=== PATIENT | female | born 1960 | race African-American/Black ===

== ENCOUNTER 2023-04-27 12:59 | Outpatient (AMB) | payer MEDICARE, SELFPAY ==
--- NOTE | 2023-04-27 13:05 | A.OFFVIS_ITS ---
Intake Vital Signs 04/27/23 13:07 Height 5 ft Weight 177 lb 4 oz BMI 34.6 BP 128/72 Blood Pressure Location Lt brachial Position Sitting Pulse 68 Pulse Source Pulse Oximeter Pulse Oximetry (%) 99 Oxygen Delivery Method Room Air Intake Visit Reasons: Chronic headaches Allergies codeine Allergy (Intermediate, Verified 04/27/23 13:11) Unknown duloxetine [From Cymbalta] Allergy (Mild, Verified 04/27/23 13:12) Unknown iodine Allergy (Mild, Verified 04/27/23 13:11) Unknown Penicillins Allergy (Mild, Verified 04/27/23 13:11) Rash pregabalin [From Lyrica] Allergy (Mild, Verified 04/27/23 13:12) Itching Medication List - Last Reconciled 04/27/23 by Mel Doll MD aripiprazole 2 mg PO DAILY esomeprazole magnesium 40 mg PO DAILY ibuprofen 800 mg PO Q6H irbesartan 150 mg PO DAILY levothyroxine 150 mcg PO DAILY metoprolol tartrate 25 mg PO DAILY nifedipine ER 30 mg PO DAILY ropinirole 0.25 mg PO DAILY topiramate 25 mg PO DAILY trazodone 100 mg PO DAILY HPI HPI Comments History of Present Illness Details 62y/o right handed female comes for neur ological evaluation she was seeing Dr. Urbano and Joanne YUEN for many years. [facility] - by Dr. Zeb Wren and Joanne . she did not fulfill the [employer] criteria for multiple sclerosis and it was ruled out. MRi findings were more diffuse than normally seen in MS patients, CSF was negative for oligoclonal bands .she also has h/o positive SSA antibody cervical spondylosis . she mentioned meningioma but according to Joanne s note there was no meningioma. She reports migraines since her teenage years and has increased in frequency and intensity. The pain is usually in right frontal temporal orbital region radiating to occip ital region, throbbing pain with nausea , light sensitivty , blurry vision. It is intense for 10-15 minutes and then has cephalgia - can last for 1 hr. she uses ibuprofen . she has about 3 -4 episodes a week. she has chronic neck and back pain and affects her sleep. [facility] Medical History Sjogren's disease IBS (irritable bowel syndrome) Hypothyroidism Fibromyalgia HTN (hypertension) Carpal tunnel syndrome on both sides Depression Anxiety Neuralgic migraines Back pain Cervical spondylosis Hernia, abdominal delivery delivered Surgical History H/O exploratory laparotomy H/O laparoscopy H/O: hysterectomy Family History Mother Heart abnormality Brother Heart abnormality Social History Alcohol intake: current Patient Tobacco Use Status: Never used Tobacco Substance Use Type: Marijuana Physical Exam Vital Signs: Last Vital Signs Pulse 68 04/27/23 13:07 BP 128/72 04/27/23 13:07 Pulse Ox 99 04/27/23 13:07 Oxygen Delivery Method Room Air 04/27/23 13:07 BMI result Body Mass Index 34.6 Const General: cooperative, healthy appearing, comfortable and no acute distress Nutritional Appearance: overweight Orientation/consciousness: patient oriented x3 Eyes Pupils: Equal, round and reactive pupils present Neuro Other: tightness in neck muscles No dystonia General: patient oriented x3, gait normal, tone normal and moves all extremities Cranial nerves: Yes Facial sensation intact/muscles of mastication intact, Yes Equal, round and reactive pupils present, Yes Bilaterally intact EOM present, Yes Nystagmus not present, Yes Normal facial strength present, Yes Midline tongue present and Yes Symmetric palate elevation present Cognition (Neuro): normal cognition Gait exam (Neuro): Normal gait present Motor exam (neuro): 5/5 motor strength present throughout and Normal motor muscle tone present throughout Deep tendon reflexes (DTR's): Right triceps reflex intensity grade: 1+, Left triceps reflex intensity grade: 1+, Rt Biceps (C5, C6): 1+, Left biceps reflex intensity grade: 1+, Right brachioradialis reflex intensity grade: 1+, Left brachioradialis reflex intensity grade: 1+, Right patellar reflex intensity grade: 1+ and Left patellar reflex intensity grade: 1+ Coordination: [id number] test normal Assessment & Plan Assessment & Plan (1) Chronic headache disorder: Code(s): R51.9 - Headache, unspecified; G89.29 - Other chronic pain (2) Neuralgic migraines: Code(s): G44.009 - Cluster headache syndrome, unspecified, not intractable (3) Cervical spondylosis: Code(s): M47.812 - Spondylosis without myelopathy or radiculopathy, cervical region Plan I will evaluate her with MRI brain - she id concerned about white matter changes that was seen few years ago I will trial her on topiramate 25mg bid Magnesium 400mg qhs Riboflavin 400mg qam flexeril 5mg qhs Orders: Orders MR head/brain wo con Today G44.009 - Cluster headache syndrome, unspecified, not intractable Medications: New cyclobenzaprine 5 mg PO BEDTIME 30 tabs 0RF topiramate 25 mg PO BID 60 tabs 6RF magnesium oxide 400 mg PO DAILY 30 tabs 6RF riboflavin (vitamin B2) 400 mg PO QAM 30 tabs 6RF Coding Level of Care Code New Pt Level 4 (70297) Diagnoses Chronic headache disorder R51.9; G89.29 Neuralgic migraines G44.009 Cervical spondylosis M47.812
[2023-04-27 13:07] VITALS: BP 128/72; PULSE 68; O2SAT 99; BMI 34.6
== END 2023-04-27 13:49 | disposition home or self-care (01) ==
PROVIDERS: Visit Provider Psychiatry & Neurology Neurology
DX: G89.29 Other chronic pain (principal); G44.009 Cluster headache syndrome, unspecified, not intractable; M47.812 Spondylosis without myelopathy or radiculopathy, cervical region
CPT/HCPCS: 99204

== ENCOUNTER → 2023-04-27 12:59 | Outpatient (BNVA) | payer MEDICARE, SELFPAY | PROVIDERS: Visit Provider Psychiatry & Neurology Neurology | DX: G44.009 Cluster headache syndrome, unspecified, not intractable (principal); R51.9 Headache, unspecified; M47.812 Spondylosis without myelopathy or radiculopathy, cervical region; G89.29 Other chronic pain | CPT/HCPCS: 99202 ==

== ENCOUNTER 2023-06-07 10:15 | Outpatient (REF) | payer MEDICARE, OTHER, SELFPAY ==
--- NOTE | ~2023-06-07 | MR_ITS ---
EXAMINATION: MR BRAIN WITHOUT CONTRAST CLINICAL INFORMATION: Migraines, blurry vision, dizzy, right facial pain COMPARISON: None. TECHNIQUE: MRI of the brain was obtained using routine sequences without contrast. FINDINGS: There is no reduced diffusion to suggest acute infarct. Susceptibility weighted sequence is within normal limits. No mass effect, extra-axial collection, midline shift, or other herniation. The ventricles and sulci are normal in size and configuration. Periventricular and subcortical T2/FLAIR hyperintense foci are nonspecific but likely represent moderate to advanced chronic microvascular ischemic change. Intracranial flow voids are preserved. Scattered paranasal sinus mucosal thickening. The mastoid air cells have trace opacification. No focal expansile/destructive osseous lesion. MR/MR head/brain wo con IMPRESSION: No acute infarction or mass effect. Moderate to advanced chronic microvascular ischemic change.
== END 2023-06-07 10:16 | disposition home or self-care (01) ==
LOC: HO.MRI 10:15
PROVIDERS: Visit Provider Psychiatry & Neurology Neurology
DX: G44.009 Cluster headache syndrome, unspecified, not intractable (principal)
CPT/HCPCS: 70551

== ENCOUNTER 2023-07-25 14:36 | Outpatient (AMB) | payer MEDICARE, SELFPAY ==
--- NOTE | 2023-07-25 15:05 | MHC.OFFVIS ---
Vital Signs 07/25/23 15:14 Height 5 ft Weight 170 lb 2 oz BMI 33.2 BP 140/70 H Blood Pressure Location Rt brachial Position Sitting Pulse 78 Pulse Source Pulse Oximeter Pulse Oximetry (%) 98 Oxygen Delivery Method Room Air Intake Visit Reasons: 3 mo f/u Intake Note: Patient presents for 3 months F/U. Allergies codeine Allergy (Intermediate, Verified 07/25/23 15:10) Unknown duloxetine [From Cymbalta] Allergy (Mild, Verified 07/25/23 15:10) Unknown iodine Allergy (Mild, Verified 07/25/23 15:10) Unknown Penicillins Allergy (Mild, Verified 07/25/23 15:10) Rash pregabalin [From Lyrica] Allergy (Mild, Verified 07/25/23 15:10) Itching HPI Comments Details: 62 y/o female patient presents for follow up of chronic headache. Pt reports her headache frequency has decreased with topiramate 25 mg BID. However, topiramate changed her taste, and her primary care recommend to stop it. Topiramate discontinued about 10 days ago. Pt tried flexeril for neck pain and headache prevention, pt tried one month, but not sure it helped to reduce the neck pain. She was seeing Dr. Urbano and Karen YUEN for many years. She was evaluated [facility] - by Dr. Zeb Wren and Karen. She did not fulfill the [employer] criteria for multiple sclerosis and it was ruled out. MRI findings were more diffuse than normally seen in MS patients, CSF was negative for oligoclonal bands. She also has h/o positive SSA antibody cervical spondylosis. She mentioned meningioma but according to Karen's note there was no meningioma. She reports migraines since her teenage years and has increased in frequency and intensity. The pain is usually in right frontal temporal orbital region radiating to occipital region, throbbing pain with nausea, light sensitivity, blurry vision. Pt reports disrupted sleep. She snores, and having non refreshing sleep with daytime sleepiness. She feels tired all the time. [facility] Medical History Sjogren's disease IBS (irritable bowel syndrome) Hypothyroidism Fibromyalgia HTN (hypertension) Carpal tunnel syndrome on both sides Depression Anxiety Neuralgic migraines Back pain Cervical spondylosis Hernia, abdominal delivery delivered Surgical History H/O exploratory laparotomy H/O laparoscopy H/O: hysterectomy Family History Mother Heart abnormality Brother Heart abnormality Social History Alcohol intake: current Patient Tobacco Use Status: Never used Tobacco Substance Use Type: Marijuana Review of Systems Const All systems reviewed & are unremarkable except as noted in HPI and below Physical Exam Vital Signs: Last Vital Signs Pulse 78 07/25/23 15:14 BP 140/70 H 07/25/23 15:14 Pulse Ox 98 07/25/23 15:14 Oxygen Delivery Method Room Air 07/25/23 15:14 BMI result Body Mass Index 33.2 Const General: cooperative, healthy appearing, comfortable and no acute distress Nutritional Appearance: overweight Orientation/consciousness: patient oriented x3 Eyes Pupils: Equal, round and reactive pupils present Neuro Other: tightness in neck muscles No dystonia General: patient oriented x3, gait normal, tone normal and moves all extremities Cranial nerves: Yes Facial sensation intact/muscles of mastication intact, Yes Equal, round and reactive pupils present, Yes Bilaterally intact EOM present, Yes Nystagmus not present, Yes Normal facial strength present, Yes Midline tongue present and Yes Symmetric palate elevation present Cognition (Neuro): normal cognition Gait exam (Neuro): Normal gait present Motor exam (neuro): 5/5 motor strength present throughout and Normal motor muscle tone present throughout Deep tendon reflexes (DTR's): Right triceps reflex intensity grade: 1+, Left triceps reflex intensity grade: 1+, Rt Biceps (C5, C6): 1+, Left biceps reflex intensity grade: 1+, Right brachioradialis reflex intensity grade: 1+, Left brachioradialis reflex intensity grade: 1+, Right patellar reflex intensity grade: 1+ and Left patellar reflex intensity grade: 1+ Coordination: [id number] test normal Assessment & Plan Assessment & Plan (1) Chronic headache disorder: Code(s): R51.9 - Headache, unspecified; G89.29 - Other chronic pain (2) Neuralgic migraines: Code(s): G44.009 - Cluster headache syndrome, unspecified, not intractable Category: Medical (3) Cervical spondylosis: Code(s): M47.812 - Spondylosis without myelopathy or radiculopathy, cervical region Category: Medical (4) Snoring: Code(s): R06.83 - Snoring Category: Medical (5) Daytime sleepiness: Code(s): R40.0 - Somnolence Category: Medical Plan D/C topiramate. Advised patient to continue to take Magnesium 400mg qhs and Riboflavin 400mg qam. Flexeril 5mg qHS. Advised patient to undergo home sleep study to r/o sleep apnea. Will follow up of sleep study result for appropriate treatment options. Orders: Orders RT home sleep study 07/25/23 Medications: Changed From cyclobenzaprine 5 mg PO BEDTIME 30 tabs 0RF To cyclobenzaprine 5 mg PO BEDTIME 30 tabs 0RF 30 days Discontinued topiramate Discontinued Reason: Doctor's Order 25 mg PO BID 60 tabs 6RF Coding Level of Care Code Est Pt Level 4 (64697) Diagnoses Chronic headache disorder R51.9; G89.29 Neuralgic migraines G44.009 Cervical spondylosis M47.812 Snoring R06.83 Daytime sleepiness R40.0
[2023-07-25 15:14] VITALS: BP 140/70; PULSE 78; O2SAT 98; BMI 33.2
== END 2023-07-25 15:51 | disposition home or self-care (01) ==
PROVIDERS: Visit Provider Nurse Practitioner Family
DX: G44.009 Cluster headache syndrome, unspecified, not intractable (principal); G89.29 Other chronic pain; M47.812 Spondylosis without myelopathy or radiculopathy, cervical region; R06.83 Snoring; R40.0 Somnolence
CPT/HCPCS: 99214

== ENCOUNTER → 2023-07-25 14:36 | Outpatient (BNVA) | payer MEDICARE, SELFPAY | PROVIDERS: Visit Provider Nurse Practitioner Family | DX: G44.009 Cluster headache syndrome, unspecified, not intractable (principal); R51.9 Headache, unspecified; M47.812 Spondylosis without myelopathy or radiculopathy, cervical region; R06.83 Snoring; R40.0 Somnolence; G89.29 Other chronic pain | CPT/HCPCS: 99212 ==

== ENCOUNTER → 2023-09-20 11:11 | Outpatient (REF) | payer MEDICARE, SELFPAY | LOC: HO.SL 11:11 | PROVIDERS: PCP Internal Medicine; Visit Provider Nurse Practitioner Family | DX: G47.33 Obstructive sleep apnea (adult) (pediatric) (principal); R40.0 Somnolence; R06.83 Snoring | CPT/HCPCS: 95806 ==

== ENCOUNTER → 2023-09-20 11:18 | Outpatient (BNV) | payer MEDICARE, SELFPAY | PROVIDERS: PCP Internal Medicine; Visit Provider Psychiatry & Neurology Neurology | DX: G47.33 Obstructive sleep apnea (adult) (pediatric) (principal) | CPT/HCPCS: 95806 ==

== ENCOUNTER 2024-01-25 15:16 | Outpatient (AMB) | payer MEDICARE, SELFPAY ==
--- NOTE | 2024-01-25 15:16 | A.OFFVIS_ITS ---
Vital Signs 01/25/24 15:17 Height 5 ft Weight 170 lb BMI 33.2 Intake Visit Reasons: Follow up Intake Note: Patient presents for follow up Allergies codeine Allergy (Intermediate, Verified 01/25/24 15:20) Unknown duloxetine [From Cymbalta] Allergy (Mild, Verified 01/25/24 15:20) Unknown iodine Allergy (Mild, Verified 01/25/24 15:20) Unknown Penicillins Allergy (Mild, Verified 01/25/24 15:20) Rash pregabalin [From Lyrica] Allergy (Mild, Verified 01/25/24 15:20) Itching Medication List - Last Reconciled 01/25/24 by Mel Doll MD aripiprazole 2 mg PO DAILY esomeprazole magnesium 40 mg PO DAILY ibuprofen 800 mg PO Q6H levothyroxine 150 mcg PO DAILY magnesium oxide 400 mg PO DAILY meloxicam 15 mg PO DAILY nifedipine ER 30 mg PO DAILY phentermine 15 mg PO DAILY riboflavin (vitamin B2) 400 mg PO QAM ropinirole 0.5 mg PO DAILY trazodone 100 mg PO DAILY HPI Comments Details: 63 y/o female patient presents for follow up of chronic headache. she was doing well but 3 weeks ago she started having more frequent headaches 3-4 /week.she also has increased neck pain. when she has the headaches she has lightheadedness and dizzy and usually in her right Temperoparietal region.she takes ibuprofen 800mg as needed Her metoprolol was stopped 3 months ago due to dizziness. she also had passed out in July of 2023. she also stopped magnesium, flexeril and riboflavin few months ago. she also was diagnosed with sleep apnea but could not use CPAP AHI 18 O2 dawood 83 % History form last visit-Pt reports her headache frequency has decreased with topiramate 25 mg BID. However, topiramate changed her taste, and her primary care recommend to stop it. Topiramate discontinued about 10 days ago. Pt tried flexeril for neck pain and headache prevention, pt tried one month, but not sure it helped to reduce the neck pain. She was seeing Dr. Urbano and Karen YUEN for many years. She was evaluated at [facility] - by Dr. Zeb Byrd. She did not fulfill the [employer] criteria for multiple sclerosis and it was ruled out. MRI findings were more diffuse than normally seen in MS patients, CSF was negative for oligoclonal bands. She also has h/o positive SSA antibody cervical spondylosis. She mentioned meningioma but according to Karen's note there was no meningioma. She reports migraines since her teenage years and has increased in frequency and intensity. The pain is usually in right frontal temporal orbital region radiating to occipital region, throbbing pain with nausea, light sensitivity, blurry vision. Pt reports disrupted sleep. She snores, and having non refreshing sleep with daytime sleepiness. She feels tired all the time. [facility] Medical History (Updated 01/25/24 @ 15:57 by Mel Doll MD) Obstructive sleep apnea hypopnea, moderate Migraine Cervicogenic headache Sarcoidosis Sjogren's disease IBS (irritable bowel syndrome) Hypothyroidism Fibromyalgia HTN (hypertension) Carpal tunnel syndrome on both sides Depression Anxiety Neuralgic migraines Back pain Cervical spondylosis Hernia, abdominal delivery delivered Surgical History H/O exploratory laparotomy H/O laparoscopy H/O: hysterectomy Family History Mother Heart abnormality Brother Heart abnormality Social History Alcohol intake: current Patient Tobacco Use Status: Never used Tobacco Substance Use Type: Marijuana Physical Exam Vital Signs: BMI result Body Mass Index 33.2 Const General: cooperative, healthy appearing, comfortable and no acute distress Nutritional Appearance: overweight Orientation/consciousness: patient oriented x3 Eyes Pupils: Equal, round and reactive pupils present Neuro Other: tenderness tightness in neck muscles No dystonia General: patient oriented x3, gait normal, tone normal and moves all extremities Cranial nerves: Yes Facial sensation intact/muscles of mastication intact, Yes Equal, round and reactive pupils present, Yes Bilaterally intact EOM present, Yes Nystagmus not present, Yes Normal facial strength present, Yes Midline tongue present and Yes Symmetric palate elevation present Cognition (Neuro): normal cognition Gait exam (Neuro): Normal gait present Motor exam (neuro): 5/5 motor strength present throughout and Normal motor muscle tone present throughout Coordination: [id number] test normal Assessment & Plan Assessment & Plan (1) Cervicogenic headache: Code(s): G44.86 - Cervicogenic headache Category: Medical (2) Migraine: Code(s): G43.909 - Migraine, unspecified, not intractable, without status migrainosus Category: Medical Qualifiers: Migraine type: unspecified Status migrainosus presence: without status migrainosus Intractability: not intractable Qualified Code(s): G43.909 - Migraine, unspecified, not intractable, without status migrainosus (3) Obstructive sleep apnea hypopnea, moderate: Code(s): G47.33 - Obstructive sleep apnea (adult) (pediatric) Category: Medical Plan Restart Magnesium 400mg qhs Restart Vit B 2 400mg qam Restart Cyclobenzaprine 5-10 mg qhs PRN will refer for oral mandibular device Orders: Referrals Dentistry Referral G47.33 - Obstructive sleep apnea (adult) (pediatric) Medications: Refilled magnesium oxide 400 mg PO DAILY 30 tabs 6RF riboflavin (vitamin B2) 400 mg PO QAM 30 tabs 6RF Discontinued cyclobenzaprine Discontinued Reason: Patient no longer taking 5 mg PO BEDTIME 30 days 30 tabs 0RF Coding Level of Care Code Est Pt Level 4 (38283) Complex EM visit Add On G2211 Diagnoses Cervicogenic headache G44.86 Migraine without status migrainosus, not intractable, unspecified migraine type G43.909 Migraine type: unspecified Status migrainosus presence: without status migrainosus Intractability: not intractable Obstructive sleep apnea hypopnea, moderate G47.33
[2024-01-25 15:17] VITALS: BMI 33.2
== END 2024-01-25 15:54 | disposition home or self-care (01) ==
PROVIDERS: Visit Provider Psychiatry & Neurology Neurology
DX: G44.86 Cervicogenic headache (principal); G43.909 Migraine, unspecified, not intractable, without status migrainosus; G47.33 Obstructive sleep apnea (adult) (pediatric)
CPT/HCPCS: 99214; G2211

== ENCOUNTER → 2024-01-25 15:16 | Outpatient (BNVA) | payer MEDICARE, SELFPAY | PROVIDERS: Visit Provider Psychiatry & Neurology Neurology | DX: G44.86 Cervicogenic headache (principal); G43.909 Migraine, unspecified, not intractable, without status migrainosus; G47.33 Obstructive sleep apnea (adult) (pediatric) | CPT/HCPCS: 99212 ==

== ENCOUNTER 2024-09-04 13:45 | Outpatient (AMB) | payer MEDICARE, BC, MEDICAID, SELFPAY ==
--- NOTE | 2024-09-04 14:02 | MHC.OFFVIS ---
Vital Signs 09/04/24 14:07 Height 5 ft Weight 178 lb 2 oz BMI 34.8 BP 118/78 Blood Pressure Location Lt brachial Position Sitting Pulse 74 Pulse Source Pulse Oximeter Pulse Oximetry (%) 98 Oxygen Delivery Method Room Air Intake Visit Reasons: Follow up Intake Note: Patient presents follow up Migraine. Allergies codeine Allergy (Intermediate, Verified 09/04/24 14:10) Unknown duloxetine [From Cymbalta] Allergy (Mild, Verified 09/04/24 14:10) Unknown iodine Allergy (Mild, Verified 09/04/24 14:10) Unknown Penicillins Allergy (Mild, Verified 09/04/24 14:10) Rash pregabalin [From Lyrica] Allergy (Mild, Verified 09/04/24 14:10) Itching HPI Comments Details: 63 y/o female patient presents for follow up of chronic headaches. HST c/w moderate JIM AHI 18 O2 dawood 83%. She continues to snore and has fragmented sleep patterns with daily fatigue and non refreshing sleep. Today with discussed the significance of using cpap and being compliant for her heart and brain health. Today she reports her migraines are much improved now 2-3x per month in the mornings usually, they begin in the r. temporal parietal region, migrates down the right side of the head to the occipital region, with a stabbing sensation, causes her to squint with right side of face then closes her r. eye. The intensity of pain is 6-7 lasting for 1/2 hour to one hour and goes away with Ibuprofen 800mg PO. She has no triggers, sometimes just a prodrome signals starting in the back of the head, with blurry vision and black dots with light sensivitivity.She recently had cataract surgery L. Apr and R. Jun with [facility] Dr. Patino, so seeing black dots is her baseline visual distortion. SHe is taking flexiril, magnesium, riboflavin. She is taking HCTZ for HTN. She passed out due to syncope in Apr 2023, and hit her head due to hypotension on metoprolol. She discontinue Topiramate 25mg PO BID, due to metallic taste, per her pcp. RLS: She has a history of RLS with numbness, tingling, throbbing pain like electrical currrents runniing down the back of her L. buttocks and down to the legs into the calves. MS history: She was seeing Dr. Urbano and Karen YUEN for many years. She was evaluated at [facility] - by Dr. Zeb Wren and Karen. She did not fulfill the [employer] criteria for multiple sclerosis and it was ruled out. MRI findings were more diffuse than normally seen in MS patients, CSF was negative for oligoclonal bands. She also has h/o positive SSA antibody cervical spondylosis. She mentioned meningioma but according to Karen's note there was no meningioma. [facility] Medical History Obstructive sleep apnea hypopnea, moderate Migraine Cervicogenic headache Sarcoidosis Sjogren's disease IBS (irritable bowel syndrome) Hypothyroidism Fibromyalgia HTN (hypertension) Carpal tunnel syndrome on both sides Depression Anxiety Neuralgic migraines Back pain Cervical spondylosis Hernia, abdominal delivery delivered Surgical History History of cataract surgery H/O exploratory laparotomy H/O laparoscopy H/O: hysterectomy Family History Mother Heart abnormality Brother Heart abnormality Social History Alcohol intake: current Patient Tobacco Use Status: Never used Tobacco Substance Use Type: Marijuana Physical Exam Vital Signs: Last Vital Signs Pulse 74 09/04/24 14:07 BP 118/78 09/04/24 14:07 Pulse Ox 98 09/04/24 14:07 Oxygen Delivery Method Room Air 09/04/24 14:07 BMI result Body Mass Index 34.8 Const General: cooperative, comfortable and no acute distress Orientation/consciousness: patient oriented x3 HEENT Face and sinus: Yes face symmetric Teeth and gingiva: other ([place]pti score is 3) Eyes Pupils: Equal, round and reactive pupils present Neck Neck: Yes full ROM and Yes other (pain is solicited on extension of the neck.) Resp Effort & Inspection: normal respiratory effort and able to speak in complete sentences Neuro General: patient oriented x3 and moves all extremities Cranial nerves: Yes Facial sensation intact/muscles of mastication intact, Yes Equal, round and reactive pupils present, Yes Normal accommodation reflex present, Yes Normal facial strength present, Yes Midline tongue present, Yes Ability to bilaterally rotate head present, Yes Ability to bilaterally elevate shoulders present and Yes Other cranial nerve findings present (pain on extesion of neck) Gait exam (Neuro): Normal gait present Motor exam (neuro): 5/5 motor strength present throughout and Normal motor muscle tone present throughout Coordination: [id number] test normal Psych Appearance: grossly normal Thought process: Normal thought process present Thought content: Normal thought content present Results Reviewed Results Reviewed: HST c/w moderate jim AHI is 18 and oxygen dawood to 83%. Assessment & Plan Assessment & Plan (1) Obstructive sleep apnea hypopnea, moderate: Comment: she is going to use the cpap machine and try to use it >4 hour each day. Code(s): G47.33 - Obstructive sleep apnea (adult) (pediatric) Category: Medical (2) Fatigue: Code(s): R53.83 - Other fatigue Category: Medical Qualifiers: Fatigue type: chronic, unspecified Qualified Code(s): R53.82 - Chronic fatigue, unspecified (3) RLS (restless legs syndrome): Comment: increased her ropinorole as 0.50 was not effective changed to 0.75mg at bedtime. Code(s): G25.81 - Restless legs syndrome Category: Medical (4) Cervicogenic headache: Comment: may be open to botox in future Code(s): G44.86 - Cervicogenic headache Category: Medical (5) Migraine: Code(s): G43.909 - Migraine, unspecified, not intractable, without status migrainosus Category: Medical Qualifiers: Migraine type: unspecified Status migrainosus presence: without status migrainosus Intractability: not intractable Qualified Code(s): G43.909 - Migraine, unspecified, not intractable, without status migrainosus Plan Migraines Continue Magnesium 400mg qhs, Vit B 2 400mg qam and Cyclobenzaprine 5-10 mg qhs PRN JIM Discussed with patient the importance of using CPAP vs. oral mandibular device, as there is no accountability with oral appliance to objectively measure improvment and given her Hypertension, CPAP will provide better outcomes. RLS increased Ropinorole from 0.50mg po to 0.75mg po at bedtime. Fatigue labs ordered today, she will complete them at [facility]. Will f/u in 3 months for compliance of cpap therapy. Orders: Orders Ferritin Today R40.0 - Somnolence, R53.83 - Other fatigue Methylmalonic Acid Today G47.9 - Sleep disorder, unspecified, R40.0 - Somnolence, R53.83 - Other fatigue Homocysteine Today G47.9 - Sleep disorder, unspecified, R40.0 - Somnolence, R53.83 - Other fatigue Vitamin D 25-OH Total Today R40.0 - Somnolence, R53.83 - Other fatigue Complete Blood Count no Diff Today R40.0 - Somnolence, R53.83 - Other fatigue Comprehensive Met. Panel Today R40.0 - Somnolence, R53.83 - Other fatigue Hemoglobin A1c Today R40.0 - Somnolence, R53.83 - Other fatigue Vitamin B12 and Folate Today R40.0 - Somnolence, R53.83 - Other fatigue Lipid Panel with Reflex Today R40.0 - Somnolence, R53.83 - Other fatigue Medications: Refilled magnesium oxide 400 mg PO DAILY 30 tabs 6RF riboflavin (vitamin B2) 400 mg PO QAM 30 tabs 6RF cyclobenzaprine 1-2 tabs orally bedtime; 60 tabs 0RF M47.812 - Spondylosis without myelopathy or radiculopathy, cervical region Patient Instructions: Sleep Hygiene provided: set a scheduled bedtime and wake time to help regulate the circadian rhythm and balance the release of pituitary hormones. Sleep in a dark room, temperatures below 68 degrees, and no devices n bed. Limit caffeinated products 6 hours prior to bed, and limit fluids 2-4 hours prior to bed. Gentle night yoga, diffusing essential oils, and playing soft music can be relaxing. F/U in 3 months for compliance and call the office if you need supplies do not wait until next appointment. Coding Level of Care Code Est Pt Level 4 (04470) Diagnoses Obstructive sleep apnea hypopnea, moderate G47.33 Chronic fatigue R53.82 Fatigue type: chronic, unspecified RLS (restless legs syndrome) G25.81 Cervicogenic headache G44.86 Migraine without status migrainosus, not intractable, unspecified migraine type G43.909 Migraine type: unspecified Status migrainosus presence: without status migrainosus Intractability: not intractable Time Spent (min) 30
[2024-09-04 14:07] VITALS: BP 118/78; PULSE 74; O2SAT 98; BMI 34.8
--- OUTSIDE RECORDS SUMMARY | 2024-09-04 14:57 | XMS_ITS ---
Author Name [facility] Organization Unknown History of Medication Use Medication Directions Dispensed Refills Start Date End Date Status meloxicam 15 mg tablet Take 1 tablet every day by oral route as needed. 4 active prednisone 10 mg tablet Day 1: 4 tablets in the morning, Day 2: 4 tablets in the morning, Day 3: 3 tablets in the morning, Day 4: 3 tablets in the morning, Day 5: 2 tablets in the morning, Day 6: 2 tablets in the morning, Day 7: 1 tablet in the morning, Day 8: 1 tablet in the morning! 4 active amoxicillin 500 mg capsule TAKE 1 CAPSULE BY MOUTH EVERY 8 HOURS 07/20/19 24 completed irbesartan 150 mg tablet TAKE 1 TABLET B Y MOUTH EVERY DAY FOR 90 DAYS 07/20/19 24 completed prednisone 10 mg tablet PLEASE SEE ATTACHED FOR DETAILED DIRECTIONS 07/20/19 24 completed valacyclovir 1 gram tablet TAKE 1 TABLET BY MOUTH 3 TIMES A DAY FOR 7 DAYS 06/30/19 24 completed valacyclovir 500 mg tablet TAKE 1 TABLET BY MOUTH 2 TIMES A DAY FOR 5 DAYS DRINK PLENTY OF FLUIDS 06/30/19 24 completed valacyclovir 500 mg tablet TAKE 1 TABLET BY MOUTH 2 TIMES A DAY FOR 5 DAYS DRINK PLENTY OF FLUIDS 06/30/19 24 completed dicyclomine 20 mg tablet TAKE 1 TABLET B Y MOUTH THREE TIMES A DAY FOR 30 DAYS 01/28/20 23 completed Linzess 145 mcg capsule PLEASE SEE ATTACHED FOR DETAILED DIRECTIONS 01/28/20 23 completed Linzess 145 mcg capsule PLEASE SEE ATTACHED FOR DETAILED DIRECTIONS 01/28/20 23 completed prednisolone acetate 1 % eye drops,suspension APPLY ONE DROP IN THE RIGHT EYE 4 TIMES A DAY FOR 7 DAYS 01/28/20 23 completed prednisolone acetate 1 % eye drops,suspension APPLY ONE DROP IN THE RIGHT EYE 4 TIMES A DAY FOR 7 DAYS 01/28/20 23 active cyclobenzaprine 5 mg tablet TAKE 1 TABLET BY MOUTH EVERYDAY AT BEDTIME active dicyclomine 10 mg capsule TAKE 1 CAPSULE BY MOUTH THREE TIMES A DAY TAKE BEFORE MEALS active dicyclomine 10 mg capsule TAKE 1 CAPSULE BY MOUTH THREE TIMES A DAY TAKE BEFORE MEALS active hydrochlorothiazide 12.5 mg tablet active hydrocortisone 2.5 % topical cream with perineal applicator APPLY A SMALL AMOUNT TO AFFECTED AREA TWICE A DAY NEEDED FOR HEMORRHOIDS active ibuprofen 800 mg tablet TAKE 1 TABLET BY MOUTH EVERY 6 HOURS NEEDED FOR PAIN active levothyroxine 150 mcg tablet TAKE 1 TABLET BY MOUTH EVERY DAY active magnesium oxide 400 mg (241.3 mg magnesium) tablet TAKE 1 TABLET BY MOUTH EVERY DAY active methylprednisolone 4 mg tablets in a dose pack TAKE 6 TABLETS ON DAY 1 DIRECTED ON PACKAGE AND DECREASE BY 1 TAB EACH DAY FOR A TOTAL OF 6 DAYS active nifedipine ER 30 mg tablet,extended release 24 hr TAKE 1 TABLET BY MOUTH EVERY DAY FOR 90 DAYS active phentermine 15 mg capsule TAKE 1 CAPSULE ORALLY ONCE A DAY FOR 28 DAYS active riboflavin (vitamin B2) 400 mg tablet TAKE 1 TABLET BY MOUTH EVERY DAY IN THE MORNING active sodium fluoride 1.1 % dental paste USE EVERY MORNING AND EVENING FOR 1 MINUTES AND SPIT OUT active sodium fluoride 1.1 % dental paste USE EVERY MORNING AND EVENING FOR 1 MINUTES AND SPIT OUT active topiramate 25 mg tablet TAKE 1 TABLET BY MOUTH TWICE A DAY FOR 30 DAYS active trazodone 100 mg tablet TAKE 1 TABLET BY MOUTH EVERYDAY AT BEDTIME active trazodone 100 mg tablet TAKE 1 TABLET BY MOUTH EVERYDAY AT BEDTIME active Allergies Allergen Reaction Severity Comment Documented Date Source Statu s CYMBALTA [facility] IODINATED CONTRAST MEDIA [facility] ECT LYRICA [facility] OXYCODONE [facility] PENICILLINS [facility] PERCOCET [facility] Problems Problem Status Onset Date Problem Type Date of Resoluti on Source Arthritis of knee active 2023-07-20 ProblemAct [facility] Trochanteric bursitis of left hip active 2023-02-04 ProblemAct [facility] Osteoarthritis of left knee joint active 2023-06-30 ProblemAct [facility] Encounters Encounter Type Encounter Reason Primary Diagnosis Location Date Ambulatory [facility] [place] 08/26/2023 Ambulatory [facility] 08/10/2023 Ambulatory [facility] 08/08/2023 Ambulatory [facility] [place] 08/08/2023 Ambulatory [facility] [place] 08/08/2023 Ambulatory [facility] [place] 08/06/2023 Ambulatory [facility] [place] 08/05/2023 Ambulatory [facility] [place] 07/21/2023 Ambulatory [facility] [place] 07/20/2023 Ambulatory [facility] [place] 07/20/2023 Ambulatory [facility] [place] 06/30/2023 Ambulatory [facility] [place] 06/28/2023 Ambulatory [facility] [place] 06/28/2023 Ambulatory [facility] [place] 06/19/2023 Ambulatory [facility] [place] 04/21/2023 Ambulatory [facility] [place] 03/18/2023 Ambulatory [facility] [place] 02/03/2023 Ambulatory [facility] [place] 02/03/2023 Ambulatory [facility] [place] 01/27/2023 Ambulatory [facility] [place] 01/27/2023 Ambulatory [facility] [place] 01/27/2023 Ambulatory [facility] [place] 01/27/2023 Ambulatory [facility] [place] 01/27/2023 Ambulatory [facility] [place] 01/27/2023
--- OUTSIDE RECORDS SUMMARY | 2024-09-04 14:57 | XMS_ITS | Clinical Summary ---
Author Organization [address] [place] [address] [place] [id number] Phone Care Team Providers Care Calcine Furnace Tender Name Role Phone Emmanuel Rios MD Primary Care Provider [phone] Allergies Active Allergy Reactions Criticality Noted Date Comments Codeine 02/23/2010 Duloxetine 03/22/2024 Dicyclomine Rash 10/28/2023 Iodinated Contrast Media 02/23/2010 Naproxen Rash 10/28/2023 Other reaction(s): Upset stomach Oxycodone-Acetaminophen 01/08/2021 Penicillins 02/23/2010 Pregabalin Nausea And Vomiting,Rash 01/08/2021 Sulfamethoxazole-Trimet hoprim 01/08/2021 Medications ARIPiprazole (ABILIFY) 2 mg tablet Take 1 tablet (2 mg total) by mouth 1 (one) time each day. 4 Active cyclobenzaprine (FLEXERIL) 5 mg tablet TAKE 1 TABLET BY MOUTH AT BEDTIME FOR 30 DAYS Active ibuprofen (ADVIL,MOTRIN) 800 mg tablet TAKE 1 TABLET BY MOUTH EVERY DAY NEEDED FOR MODERATE PAIN WITH FOOD FOR 30 DAYS 4 Active hydroCHLOROthia zide 12.5 mg tablet Take 1 tablet (12.5 mg total) by mouth 1 (one) time each day. 4 Active hydrocortisone 2.5 % cream APPLY A SMALL AMOUNT TO AFFECTED AREA TWICE A DAY NEEDED FOR HEMORRHOIDS Active levothyroxine (SYNTHROID, LEVOTHROID) 150 mcg tablet Take 1 tablet (150 mcg total) by mouth 1 (one) time each day. 4 Active rOPINIRole (REQUIP) 0.25 mg tablet TAKE 2 TABLET BY MOUTH DAILY AT BEDTIME FOR 90 DAYS 4 Active traZODone (DESYREL) 100 mg tablet Take 1 tablet (100 mg total) by mouth at bedtime. 4 Active Active Problems Problem Noted Date Diagnosed Date Palpitations 03/22/2024 Assessment & Plan (03/22/2024 5:51 PM EST): Given that the symptoms are occurring almost every night, have lower suspicion for arrhythmia-arrhythmias are typically not this predictable. However, given that she has recently been diagnosed with sarcoidosis, I would like to proceed with [id number] Holter and echocardiogram as detailed below. Orders: Transthoracic echocardiogram (TTE) complete with PRN contrast, bubble, strain, and 3D order panel; Future Extended cardiac holter monitor (48 hrs - 15 days); Future Pulmonary sarcoidosis ([facility] V24) 03/22/2024 Assessment & Plan (03/22/2024 5:51 PM EST): Thus far, she has not had any heart failure symptoms and no evidence of heart block on ECG. I explained that patients with pulmonary sarcoid often do not have coexisting cardiac sarcoid but it is being diagnosed more more. I would at least like to get a baseline echocardiogram. Her last one was in 2018 so I think it needs updating. There were no pathologic findings on exam today. I will follow-up on this echo and if normal, I do not think we need to do an exhaustive search for cardiac sarcoid unless she manifests symptoms or signs. 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 Venous insufficiency 03/22/2024 Assessment & Plan (03/22/2024 5:51 PM EST): Agree with ongoing use of compression stockings is much as possible. Patient is currently on hydrochlorothiazide which I am cautiously continuing. Please see above. Primary hypertension 03/22/2024 Assessment & Plan (03/22/2024 5:51 PM EST): See plan above under vasovagal syncope but for now I am continuing her current hydrochlorothiazide. It appears to be effective at managing and controlling her blood pressure. Chest pain 03/20/2024 Assessment & Plan (03/22/2024 12:07 PM EST): Orders: ECG 12 lead Transthoracic echocardiogram (TTE) complete with PRN contrast, bubble, strain, and 3D order panel; Future Extended cardiac holter monitor (48 hrs - 15 days); Future Vasovagal syncope 03/19/2024 Assessment & Plan (03/22/2024 5:51 PM EST): 1 episode but also having intermittent episodes of postural lightheadedness it sounds like. My suspicion is that this is related to a combination of factors. She could have been relatively dehydrated at the time of her syncopal episode. She is also on antihypertensives-particularly hydrochlorothiazide which can exacerbate this issue. Furthermore she has venous insufficiency. With use of venous compression stockings and behavioral modifications including adequate oral hydration, slow postural changes, recognition of prodrome, she has been able to manage her symptoms and avoid additional syncopal episodes. I reviewed additional think she could do including isometric manager supply chain planning exercises at the time of symptomatology. If all these behavioral modifications do not work, you could consider going back to dihydropyridine calcium channel blockers and ARB for blood pressure control. Her PCP had her on a regimen of irbesartan and nifedipine in the past but based on her description, it sounds like this was not as effective. So I am cautiously continuing hydrochlorothiazide for the time being. Resolved Problems Problem Noted Date Diagnosed Date Resolved Date Orthostatic hypotension 03/19/20240 08/2023 Dysrhythmia 03/19/2024 03/22/2024 Medical History Medical History Date Comments Fibromyalgia Sjogren's syndrome (CMS/HCC V24) B12 deficiency IBS (irritable bowel syndrome) Asthma Syncopal episodes Family History Medical History Relation Name Comments Heart attack Brother Toño Aortic stenosis Mother Heart attack Sister Lois Relation Name Status Comments Brother Toño Alive Mother Alive Sister Lois Alive Social History Tobacco Use Types Packs/Day Years Used Date Smoking Tobacco: Never Smokeless Tobacco: Never Alcohol Use Standard Drinks/Week Comments Yes 0 (1 standard drink = 0.6 oz pur e alcohol) social Comments Unknown Sex and Gender Information Value Date Recorded Sex Assigned at Female 03/22/2024 11:14 AM EST Legal Sex Female 1:15 AM EST Gender Identity Female 03/22/2024 11:14 AM EST Sexual Orientation Not on file Obstetrics History Last Filed Vital Signs Vital Sign Reading Time Taken Comments Blood Pressure 142/79 04/05/2024 12:27 PM EST Pulse 63 03/22/2024 11:20 AM EST Temperature - - Respiratory Rate - - Oxygen Saturation 98% 03/22/2024 11:20 AM EST Inhaled Oxygen Concentration - - Weight 77.1 kg (170 lb) 04/05/2024 12:27 PM EST Height 152.4 cm (5') 04/05/2024 12:27 PM EST Body Mass Index 33.2 04/05/2024 12:27 PM EST Plan of Treatment Upcoming Encounters Date Type Department Care Team (Late st Contact Info) Description 09/20/2024 2:15 PM EDT Office Visit Pulmonol - [place] [address] [facility] [address] [place] [phone] Kat Thomas MD [address] [place] [address] Health Maintenance Due Date Last Done Comments Breast Cancer Screening 1960 Pneumococcal Vaccine: 50+ Years (1 of 2 - PCV) 12/29/1978 Pneumococcal Vaccine: Pediatrics (0 to 5 Years) and At-Risk Patients (6 to 64 Years) (1 of 2 - PCV) 12/29/1978 Cervical Cancer Screening: Pap Smear 12/29/1980 RSV Immunization Adult Patients (1 - Risk 60-74 years 1-dose series) 2019 Cholesterol Screening (Lipid Panel) 03/21/2022 Colorectal Cancer Screening: Colonoscopy 03/21/2022 Depression Screening 03/21/2022 HIV Screening 03/21/2022 Hepatitis C Screening 03/21/2022 Medicare Annual Wellness Visit 03/21/2022 Social Influencers of Health Screening 03/21/2022 Hypertension/CHF/CAD Annual BMP Blood Test 04/17/2022 COVID-19 Vaccine ( season) 2023 02/23/2022, 07/22/2021, 07/19/2020, Additional history exists Influenza Vaccine (Season Ended) 2024 01/20/2023, 01/20/2023, 02/16/2022, Additional history exists DTaP,Tdap,and Td Vaccines (2 - Td or Tdap) 05/22/2028 05/22/2018 Zoster Vaccines Completed 10/15/2020, 05/09/2020 HIB Vaccines Aged Out No longer eligi ble based on patient's age to complete this topic HPV Vaccines Aged Out No longer eligi ble based on patient's age to complete this topic Hepatitis A Vaccines Aged Out No long er eligible based on patient's age to complete this topic Hepatitis B Vaccines Aged Out No long er eligible based on patient's age to complete this topic IPV Vaccines Aged Out No longer eligi ble based on patient's age to complete this topic MMR Vaccines Aged Out No longer eligi ble based on patient's age to complete this topic Meningococcal ACWY Vaccine Aged Out N o longer eligible based on patient's age to complete this topic Meningococcal B Vaccine Aged Out No l onger eligible based on patient's age to complete this topic RSV Immunization Patients Under 20 months Aged Out No longer eligible based on patient's age to complete this topic Varicella Vaccines Aged Out No longer eligible based on patient's age to complete this topic Insurance [place] - [place] MEDICARE ADVANTAGE Care Teams Calcine Furnace Tender Relationship Specialty Start Date End Date Emmanuel Rios MD [address] [place] [phone] PCP - General 02/23/10
--- OUTSIDE RECORDS SUMMARY | 2024-09-04 14:58 | XMS_ITS | Patient Health Record ---
Author Organization [facility] Address [address] [place] [address] [address] [place] [address] Care Team Providers Care Railroad Repairer Name Role Phone Unknown, Unknown Primary Care Provider Unavailab le Allergies Allergen (clinical drug ingredient) Drug/Non Drug Allergy documented on EMR Reaction Allergy Type Onset Date Status duloxetine Cymbalta hives Drug Allergy Active pregabalin Lyrica hives Drug Allergy Active codeine Codeine breathing issues Drug Allergy Active naproxen Naproxen hives Drug Allergy Active Penicillin hives Drug Allergy Active Reason For Referral No Information Medications Medication SIG (Take, Route, Frequency, Duration) Notes Start Date End Date Status Esomeprazole Magnesium 40 MG 1 capsule Orally Once a day Active B12 400 MG Active Irbesartan 150 MG 1/2 tablet Orally Once a day Active Magnesium 400 MG as directed Orally Active NIFEdipine ER 30 MG 1 tablet on an empty stomach Orally Once a day Active Cyclobenzaprine HCl 5 MG 1 tablet at bed time as needed Orally Once a day Active Levothyroxine Sodium 137 MCG 1 tablet in the morning on an empty stomach Orally Once a day Active Albuterol Sulfate HFA 108 (90 Base) MCG/ACT 1 puff as needed Inhalation every 4 hrs Active Topiramate 25 MG TAKE 1 TABLET BY MOUTH TWICE A DAY FOR 30 DAYS for 90 Active Phentermine HCl 15 MG TAKE 1 CAPSULE ORA LLY ONCE A DAY FOR 28 DAYS for 06/28/2023 Active traZODone HCl 100 MG 1 tablet at bedtime Orally Once a day Active ARIPiprazole 2 MG 1 tablet Orally Once a day Active rOPINIRole HCl 0.25 MG 1 tablet 1 to 3 h ours before bedtime Orally Once a day Active Metoprolol Succinate ER 25 MG 1 tablet Orally Once a day Active Ibuprofen Active Linzess 145 MCG 1 capsule at least 3 0 minutes before the first meal of the day on an empty stomach Orally Once a day for 30 day(s) 08/03/2022 Not-Taking Symbicort 160-4.5 MCG/ACT 2 puffs Inhala tion Twice a day Active Dicyclomine HCl 20 MG 1 tablet Orally Th ree times a day for 30 day(s) 08/03/2022 Not-Taking Immunizations Vaccine Route Administration Date Status Comme nts COVID Moderna Unknown 07/18/2020 Administered COVID Moderna Unknown 07/22/2021 Administered COVID-19 Moderna Unknown 02/23/2022 Administered Flu Shot Unknown 02/16/2022 Administered Shingrix Unknown 05/09/2020 Administered Shingrix Unknown 10/15/2020 Administered Social History Tobacco Use: Social History Observation Description Date Details (start date - stop date) Never Smoker NA - NA Tobacco Use/Smoking Question Answer Notes Are you a nonsmoker Alcohol Screen (Audit-C) Question Answer Notes Did you have a drink contain ing alcohol in the past year? Yes How often did you have a dri nk containing alcohol in the past year? Monthly or less (1 point) How many drinks did you have on a typical day when you were drinking in the past year? 1 or 2 drinks (0 point) Points 1 Interpretation Negative Problems Problem Type SNOMED Code ICD Code Onset Dates Problem Status W/U Status Risk Notes Problem Hypothyroidism (19513648) Hypothyroidism, unspecified (E03.9) Active confirmed Problem Obesity due to excess calories (953517775) Other obesity due to excess calories (E66.09) Active confirmed Problem Mild recurrent major depression (62976094) Major depressive disorder, recurrent, mild (F33.0) Active confirmed Problem Generalized anxiety disorder (97617623) Generalized anxiety disorder (F41.1) Active confirmed Problem Restless legs syndrome (69732671) Restless legs syndrome (G25.81) Active confirmed Problem Insomnia (120496239) Insomnia, unspecified (G47.00) Active confirmed Problem Uncomplicated mild persistent asthma (095348766) Mild persistent asthma, uncomplicated (J45.30) Active confirmed Problem Gastro-esophageal reflux disease without esophagitis (661617224) Gastro-esophagea l reflux disease without esophagitis (K21.9) Active confirmed Problem Constipation (04228006) Constipation, unspecified (K59.00) Active confirmed Problem Essential hypertension (91454867) Essential (primary) hypertension (I10) Active confirmed Problem Irritable bowel syndrome characterized by constipation (785224735) Irritable bowel syndrome with constipation (K58.1) Active confirmed Plan Of Treatment No Information Insurance Providers Payer Name Payer Address Payer Phone Subscriber Number Group Number Insured Name Patient Relationship to Insured Coverage Start Date Coverage End Date [facility] [address] [place] [phone] [id number] Kadie Sharma Self - patient is the insured Medicare [address] [place] [address] [id number] Kadie Sharma Self - patient is the insured Medical (General) History Medical History History ICD Code insomnia RLS anxiety/depression and sees Dr. Teran asthma hypertension GERD IBS Surgical History Surgery Date(Month/Year) x2 partial hysterectomy incisional hernia
--- OUTSIDE RECORDS SUMMARY | 2024-09-04 14:58 | XMS_ITS | Clinical Summary ---
Author Organization [facility] Address [address] [place] [address] Care Team Providers Care Thread Checker Name Role Phone Emmanuel Rios MD Primary Care Provider [phone] Allergies Active Allergy Reactions Criticality Noted Date Comments Sulfamethoxazole-Trimethoprim 2020 Duloxetine Hcl 01/08/2021 Iodinated Contrast Media 01/08/2021 Pregabalin 01/08/2021 Penicillin G 01/08/2021 Oxycodone-Acetaminophen 01/08/2021 Medications Medication Sig Dispensed Refills Start Date End Date Status levothyroxine (SYNTHROID) tablet 175 mcg Take 175 mcg by mouth every morning on an empty stomach. 0 Active rOPINIRole (REQUIP) 0.25 MG tablet Take 0.5 mg by mouth 2 (two) times a day. 0 Active traZODone (DESYREL) 100 MG tablet Take 100 mg by mouth every night at bedtime. 0 Active ibuprofen 800 MG tablet Take 800 mg by mouth every 8 (eight) hours as needed for pain. 0 Active metoprolol tartrate (LOPRESSOR) 50 MG tablet Take 50 mg by mouth daily. 0 Active meclizine (ANTIVERT) 25 MG tablet Take 25 mg by mouth 3 (three) times a day as needed. 0 Active Active Problems Problem Noted Date Diagnosed Date Hypothyroidism 01/09/2021 HTN (hypertension) 01/09/2021 Family History Medical History Relation Name Comments Diabetes Brother Diabetes Maternal Aunt Diabetes Maternal Grandmother Diabetes Maternal Uncle Aortic stenosis Mother Arthritis Mother Osteoporosis Mother Thyroid cancer Mother Thyroid disease Mother Asthma Sister Heart attack Sister Heart disease Sister Multiple sclerosis Neg Hx Relation Name Status Comments Brother Maternal Aunt Maternal Grandmother Maternal Uncle Mother Sister Social History Tobacco Use Types Packs/Day Years Used Date Smoking Tobacco: Never Smokeless Tobacco: Never Sex and Gender Information Value Date Recorded Sex Assigned at Not on file Gender Identity Not on file Sexual Orientation Not on file Job Start Date Occupation Industry Not on file Not on file Not on file Last Filed Vital Signs Vital Sign Reading Time Taken Comments Blood Pressure 138/92 01/08/2021 9:56 AM EDT Pulse 68 01/08/2021 9:56 AM EDT Temperature 36.2 ??C (97.2 ??F) 01/08/2021 9:56 AM ED T Respiratory Rate - - Oxygen Saturation 95% 01/08/2021 9:56 AM EDT Inhaled Oxygen Concentration - - Weight 84.2 kg (185 lb 9.6 oz) 01/08/2021 9:56 A M EDT Height 149.9 cm (4' 11 ) 01/08/2021 9:56 AM EDT Body Mass Index 37.49 01/08/2021 9:56 AM EDT Plan of Treatment Health Maintenance Due Date Last Done Comments Hepatitis C Screening 1960 COVID-19 Vaccine (#1) 06/28/1960 Depression Screening 1971 BMI Counseling 12/29/1977 Preventative Health Evaluation 12/29/1977 DTap / Tdap / Td (1 - Tdap) 12/29/1978 Cervical Cancer Screening (P ap Smear) 12/29/1980 Colon Cancer Screening (Colonoscopy) 12/29/2004 Breast Cancer Screening (Mammogram) 12/29/2009 Shingrix-Zoster Vaccine (1 of 2) 12/29/2009 Influenza Vaccine (#1) 2023 Pneumococcal Vaccine (1 of 1 - PCV) 12/29/2024 RSV Adult > 60+ Yrs or Pregn ant (1 - 1-dose 75+ series) 12/29/2034 Hepatitis B Vaccines Aged Out No long er eligible based on patient's age to complete this topic Pneumococcal Vaccine Aged Out No long er eligible based on patient's age to complete this topic RSV Ped < 20 months Aged Out No longe r eligible based on patient's age to complete this topic Care Teams Thread Checker Relationship Specialty Start Date End Date Emmanuel Rios MD [address] [place] [id number] PCP - General Family Consultant 01/08/21
== END 2024-09-04 14:57 | disposition home or self-care (01) ==
LOC: HO.HSMS 13:45
PROVIDERS: Visit Provider Physician Assistant Medical
DX: G47.33 Obstructive sleep apnea (adult) (pediatric) (principal); R53.82 Chronic fatigue, unspecified; G25.81 Restless legs syndrome; G44.86 Cervicogenic headache; G43.909 Migraine, unspecified, not intractable, without status migrainosus
CPT/HCPCS: 99214

== ENCOUNTER → 2024-09-04 13:45 | Outpatient (BNVA) | payer MEDICARE, OTHER, SELFPAY | PROVIDERS: Visit Provider Physician Assistant Medical | DX: G25.81 Restless legs syndrome (principal); G47.33 Obstructive sleep apnea (adult) (pediatric); R53.82 Chronic fatigue, unspecified; G44.86 Cervicogenic headache; G43.909 Migraine, unspecified, not intractable, without status migrainosus; R40.0 Somnolence; R53.83 Other fatigue; M47.812 Spondylosis without myelopathy or radiculopathy, cervical region | CPT/HCPCS: 99212 ==

== ENCOUNTER 2025-01-21 14:31 | Outpatient (AMB) | payer MEDICARE, MEDICAID, SELFPAY ==
--- NOTE | 2025-01-21 14:57 | A.OFFVIS_ITS ---
Vital Signs 01/21/25 14:59 Height 5 ft Weight 167 lb 6 oz BMI 32.7 BP 128/72 Blood Pressure Location Rt brachial Position Sitting Pulse 88 Pulse Source Pulse Oximeter Pulse Oximetry (%) 97 Oxygen Delivery Method Room Air Intake Visit Reasons: 3m Follow up Intake Note: Patient presents follow up Migraine/JIM. Patient states still getting migraine at times not as much as before(back of head and in shinto). When takes medication helps lower but comes back. 2 migraines in the past month. Patient is not on cpap. states sleep as been good Accompanied by: Self / Same As Patient Allergies codeine Allergy (Intermediate, Verified 01/21/25 15:02) Unknown duloxetine (From Cymbalta) Allergy (Mild, Verified 01/21/25 15:02) Unknown iodine Allergy (Mild, Verified 01/21/25 15:02) Unknown Penicillins Allergy (Mild, Verified 01/21/25 15:02) Rash pregabalin (From Lyrica) Allergy (Mild, Verified 01/21/25 15:02) Itching HPI Comments Details: 63 y/o female patient presents for follow up of chronic headaches. September 2023 HST c/w moderate JIM, AHI is 18 with oxygen dawood is 83%. Start on APAP therapy and monitor for compliance. She continues to snore loudly, and has fragmented sleep patterns with non refreshing sleep. She has shortness of breath when going up the stairs and laying down. She complains of difficulty swallowing her saliva and choking when laying flat. She had an endoscopy which revealed and narrow esophagus and a dilatation procedure of the esophagus many years ago. She has morning headaches and she has bruxism and clenches the jaws at night. She denies a mouth guard. Migraines are consistent 2-3x per month with slight spasms of pain 4/10, and a stabbing sensation usually begin begins in the r. temporal parietal region, then migrates down the right side of the head to the occipital region, this causes her to squint with right side of face then closes her r. eye. She denies phonophobia, vertigo, dizziness, balance and gait difficulties. This can last for hours. She takes 800mg po ibuprofen prn. Patient education provided regarding ibuprofen over use. She has no triggers, sometimes just a prodrome that signals the start of migraines in the back of the head, with blurry vision, black dots and light sensitivity. She she continues to take magnesium, and riboflavin. She discontinued Topiramate 25mg PO BID, due to metallic taste, per her pcp. RLS: She has a history of RLS with paresthesias and throbbing pain, like electrical currents running down the back of her L. buttocks and down to the legs into the calves, and big toe. She has a history of gout. She has plantar surface pain radiating to the heel, cortisone shots can decrease her symptoms. Her memory is poor she loses many items and spends time looking for them. She has difficulty recalling words, confusion, and has gotten lost going to [employer] while heading to [employer]. She takes care of her 88 year old mother with dementia and is concerned about her own health. She would like to taper aripiprazole to 1 mg p.o. daily and continue with bupropion for symptoms of anxiety and depression. MS history: She was seeing Dr. Urbano and Karen YUEN for many years. She was evaluated at [facility] - by Dr. Zeb Wren and Karen. She did not fulfill the [employer] criteria for multiple sclerosis and it was ruled out. MRI findings were more diffuse than normally seen in MS patients, CSF was negative for oligoclonal bands. She also has h/o positive SSA antibody cervical spondylosis. She mentioned meningioma but according to Karen's note there was no meningioma. [facility] Medical History Obstructive sleep apnea hypopnea, moderate Migraine Cervicogenic headache Sarcoidosis Sjogren's disease IBS (irritable bowel syndrome) Hypothyroidism Fibromyalgia HTN (hypertension) Carpal tunnel syndrome on both sides Depression Anxiety Neuralgic migraines Back pain Cervical spondylosis Hernia, abdominal delivery delivered Surgical History History of cataract surgery H/O exploratory laparotomy H/O laparoscopy H/O: hysterectomy Family History Mother Heart abnormality Brother Heart abnormality Social History Alcohol intake: current Patient Tobacco Use Status: Never used Tobacco Substance Use Type: Marijuana Physical Exam Vital Signs: Last Vital Signs Pulse 88 01/21/25 14:59 BP 128/72 01/21/25 14:59 Pulse Ox 97 01/21/25 14:59 Oxygen Delivery Method Room Air 01/21/25 14:59 BMI result Body Mass Index 32.7 Const General: cooperative, comfortable and no acute distress Orientation/consciousness: patient oriented x3 HEENT Face and sinus: Yes face symmetric Teeth and gingiva: other ([place]i score is 3) Eyes Pupils: Equal, round and reactive pupils present Neck Neck: Yes full ROM and Yes other (pain is solicited on extension of the neck.) Resp Effort & Inspection: normal respiratory effort and able to speak in complete sentences Neuro General: patient oriented x3 and moves all extremities Cranial nerves: Yes Facial sensation intact/muscles of mastication intact, Yes Equal, round and reactive pupils present, Yes Normal accommodation reflex present, Yes Normal facial strength present, Yes Midline tongue present, Yes Ability to bilaterally rotate head present, Yes Ability to bilaterally elevate shoulders present and Yes Other cranial nerve findings present (pain on extesion of neck) Gait exam (Neuro): Normal gait present Motor exam (neuro): 5/5 motor strength present throughout and Normal motor muscle tone present throughout Coordination: [id number] test normal Psych Appearance: grossly normal Thought process: Normal thought process present Thought content: Normal thought content present Results Reviewed Results Reviewed: MR/MR head/brain wo con IMPRESSION: No acute infarction or mass effect. Moderate to advanced chronic microvascular ischemic change. I reviewed her MRI from May 2023 and discussed the seriousness of chronic microvascular ischemic changes and good bp management. September 2023 HST c/w moderate JIM, AHI is 18 with oxygen dawood is 83%. Start on APAP therapy and monitor for compliance. Assessment & Plan Assessment & Plan (1) Obstructive sleep apnea hypopnea, moderate: Code(s): G47.33 - Obstructive sleep apnea (adult) (pediatric) Category: Medical (2) Loud snoring: Code(s): R06.83 - Snoring Category: Medical (3) Fatigue: Code(s): R53.83 - Other fatigue Category: Medical Qualifiers: Fatigue type: chronic, unspecified Qualified Code(s): R53.82 - Chronic fatigue, unspecified (4) RLS (restless legs syndrome): Comment: increased her ropinorole as 0.50 was not effective changed to 0.75mg at bedtime. Code(s): G25.81 - Restless legs syndrome Category: Medical (5) Cervicogenic headache: Code(s): G44.86 - Cervicogenic headache Category: Medical (6) Migraine: Code(s): G43.909 - Migraine, unspecified, not intractable, without status migrainosus Category: Medical Qualifiers: Intractability: not intractable Migraine type: unspecified Status migrainosus presence: without status migrainosus Qualified Code(s): G43.909 - Migraine, unspecified, not intractable, without status migrainosus (7) Dysphagia: Code(s): R13.10 - Dysphagia, unspecified Category: Medical Qualifiers: Dysphagia type: unspecified Qualified Code(s): R13.10 - Dysphagia, unspecified (8) Snoring: Code(s): R06.83 - Snoring Category: Medical (9) Hx of migraines: Code(s): Z86.69 - Personal history of other diseases of the nervous system and sense organs Category: Medical Plan Moderate JIM reviewed HST with patient and the importance of using APAP vs. oral mandibular device, as there is no accountability with oral appliance use to objectively measure improvement. Start APAP therapy and for >4 hours daily at night. RX sent to [facility] for supplies. Migraines Acute episodic will start her on Sumatriptan 25mg po at the onset of migraine and may take one additional tablet with in 2 hours of the first dose not to exceed 2 tablets in a 24hour period. Continue Magnesium 400mg qhs, Vit B 2 400mg qam and migraine cap. RLS increased Ropinorole from 0.50mg po to 0.75mg po at bedtime. Labs requested from [facility] Dysphagia, choking on her saliva and difficulty swallowing solids and liquids, with past h/o dilatation. Snoring, Sleep Dentistry referral for somno-guard evaluation. Will f/u in 3 months for compliance of cpap therapy. Orders: Orders [place] Modified Barium Swallow 01/21/25 K11.7 - Disturbances of salivary secretion, R13.10 - Dysphagia, unspecified Referrals Dentistry Referral R06.83 - Snoring Medications: New sumatriptan succinate take 1 tab at onset of headache; if no relief may repeat 1 tab after at least 2 hrs; max = 4 tabs/24 hr PO 14 tabs 0RF MDD 50 Z86.69 - Personal history of other diseases of the nervous system and sense organs Patient Instructions: Please complete the following fasting labs to rule out deficiencies. CBC/CMP/ B12/ Vit D/ TSH/ Homocysteine and MMA/ Ferritin. Sleep Hygiene provided: set a scheduled bedtime and wake time to help regulate the circadian rhythm and balance the release of pituitary hormones. Sleep in a dark room, temperatures below 68 degrees, and no devices n bed. Limit caffeinated products 6 hours prior to bed, and limit fluids 2-4 hours prior to bed. Gentle night yoga, diffusing essential oils, and playing soft music can be relaxing. This note is constructed using voice recognition software. While every effort has been made to ensure accuracy, epidemiology investigator errors may have been included. Coding Level of Care Code Est Pt Level 4 (60929) Diagnoses Obstructive sleep apnea hypopnea, moderate G47.33 Loud snoring R06.83 Chronic fatigue R53.82 Fatigue type: chronic, unspecified RLS (restless legs syndrome) G25.81 Cervicogenic headache G44.86 Migraine without status migrainosus, not intractable, unspecified migraine type G43.909 Intractability: not intractable Migraine type: unspecified Status migrainosus presence: without status migrainosus Dysphagia, unspecified type R13.10 Dysphagia type: unspecified Snoring R06.83 Hx of migraines Z86.69
[2025-01-21 14:59] VITALS: BP 128/72; PULSE 88; O2SAT 97; BMI 32.7
--- OUTSIDE RECORDS SUMMARY | 2025-01-21 16:57 | XMS_ITS | Clinical Summary ---
Author Organization [facility] Address [address] [place] [address] Care Team Providers Care Human Resources Receptionist Name Role Phone Emmanuel Rios MD Primary Care Provider [phone] Allergies Active Allergy Reactions Criticality Noted Date [...] 68 01/08/2021 9:56 AM EDT Temperature 36.2 C (97.2 F) 01/08/2021 9:56 AM EDT Respiratory Rate - - Oxygen Saturation 95% [...] (1 of 2) 12/29/2009 Influenza Vaccine (#1) 2024 Fall Risk Assessment 12/29/2024 Osteoporosis Screening (DEXA Scan) 12/29/2024 Pneumococcal Vaccine (1 of 1 - PCV) [...] age to complete this topic Care Teams Human Resources Receptionist Relationship Specialty Start Date End Date Emmanuel Rios MD [address] [address] PCP - General Adhesive Bandage Making Operator 01/08/21
--- OUTSIDE RECORDS SUMMARY | 2025-01-21 16:57 | XMS_ITS | Clinical Summary ---
Author Organization [address] [place] [address] [place] [id number] Phone Care Team Providers Care Business And Marketing Teacher Name Role Phone Emmanuel Rios MD Primary Care Provider [phone] Allergies Active Allergy Reactions Criticality Noted Date [...] total) by mouth at bedtime. 4 Active Ventolin HFA 90 mcg/actuation inhaler Inhale 2 puffs by mouth 3 (three) times a day. Active magnesium oxide (MAG-OX) 400 mg (241.3 elemental magnesium) tablet Take 1 tablet (400 mg total) by mouth 1 (one) time each day. Active riboflavin (VITAMIN B2) 400 mg tablet Take 1 tablet (400 mg total) by mouth 1 (one) time each day in the morning. Active predniSONE (DELTASONE) 10 mg tablet Take 2 tablets (20 mg total) by mouth 1 (one) time each day for 4 days, THEN 1 tablet (10 mg total) 1 (one) time each day for 8 days, THEN 0.5 tablets (5 mg total) 1 (one) time each day for 4 days. Disp as written. 18 each 5 Active buPROPion (WELLBUTRIN) 100 mg tablet Take by mouth 2 (two) times a day. Active Zithromax Z-Jerrell 250 mg tablet Take by mouth. 5 Active cephalexin (KEFLEX) 500 mg capsule take 1 capsule by mouth 4 times a day,x7 days 5 Active diclofenac (Voltaren Arthritis Pain) 1 % topical gel Apply 2 g topically. 4 Active dicyclomine (BENTYL) 10 mg capsule TAKE 1 CAPSULE BY MOUTH THREE TIMES A DAY TAKE BEFORE MEALS Active doxycycline (VIBRAMYCIN) 100 mg capsule Take 1 capsule (100 mg total) by mouth 2 (two) times a day. 7 days 5 Active esomeprazole (NexIUM) [address] capsule Take 1 capsule (40 mg total) by mouth 1 (one) time each day. Active hydrOXYzine HCL (ATARAX) 25 mg tablet TAKE 1 CAPSULE BY MOUTH 4 TIMES A DAY,X30 DAYS NEEDED FOR ITCHING 5 Active ketoconazole (NIZORAL) 2 % cream APPLY TO AFFECTED SKIN NEEDED TWICE A DAY NEEDED FOR 14 DAYS 5 Active Paxlovid 300 mg (150 mg x 2)-100 mg tablet therapy pack TAKE 2 TABLETS (NIRMATRELVIR) AND TAKE 1 TABLET (RITONAVIR) BY MOUTH TWICE A DAY FOR 5 DAYS 5 Active ofloxacin (OCUFLOX) 0.3 % ophthalmic solution instill one drop into left eye four times a day 5 Active phentermine 15 mg capsule TAKE 1 CAPSULE ORALLY ONCE A DAY FOR 28 DAYS Active triamcinolone (KENALOG) 0.1 % cream APPLY A THIN FILM TO THE AFFECTED AREA TOPICALLY 3 TIMES A DAY FOR 14 DAYS 5 Active Hospital, Clinic, or Other Facility Administered Medication Ordered Dose Route Frequency Start Date End Date Status albuterol 2.5 mg /3 mL (0.083 %) nebulizer solution 2.5 mgIndications:Moderat e asthma with acute exacerbation, unspecified whether persistent 2.5 mg nebu Every 6 hours PRN 09/20/2024 Active albuterol 2.5 mg /3 mL (0.083 %) nebulizer solution 2.5 mgIndications:Moderat e asthma with acute exacerbation, unspecified whether persistent 2.5 mg nebu Every 6 hours PRN 09/20/2024 Active Active Problems Problem Noted Date Diagnosed Date Adjustment disorder with mixed emotional feature s 09/13/2024 Asthma 09/13/2024 Carpal tunnel syndrome on both sides 09/13/2024 Cluster headache 09/13/2024 Deficiency of vitamin B12 09/13/2024 Depression, major, recurrent, mild (CMS/HCC V24) 09/13/2024 Eczema 09/13/2024 Fibromyalgia 09/13/2024 Neck pain 09/13/2024 Generalized anxiety disorder 09/13/2024 PTSD (post-traumatic stress disorder) 09/13/2024 Insomnia 09/13/2024 Irritable bowel syndrome with constipation 09/13 Multinodular non-toxic goiter 09/13/2024 Class 1 obesity 09/13/2024 Obesity 09/13/2024 Paresthesia of both feet 09/13/2024 Restless legs 09/13/2024 Status post total abdominal hysterectomy and bilateral salpingo-oophorectomy (ABISAI-BSO) 09/13/2024 Superficial phlebitis of leg 09/13/2024 Essential hypertension 09/13/2024 Pulmonary sarcoidosis (CMS/HCC V24) 09/13/2024 Palpitations 03/22/2024 Assessment & Plan (03/22/2024 5:51 PM EST): Given that the symptoms are occurring almost every night, have lower suspicion for arrhythmia-arrhythmias are typically not this predictable. However, given that she has recently been diagnosed with sarcoidosis, I would like to proceed with [id number] Holter and echocardiogram as detailed below. Orders: Transthoracic echocardiogram (TTE) complete with PRN contrast, bubble, strain, and 3D order panel; Future Extended cardiac holter monitor (48 hrs - 15 days); Future Pulmonary sarcoidosis (CMS/HCC V24) 03/22/2024 Assessment & Plan (03/22/2024 5:51 [...] Continue management of pulmonary sarcoid via her news content specialist. Venous insufficiency 03/22/2024 Assessment & Plan (03/22/2024 [...] additional think she could do including isometric production quality manager exercises at the time of symptomatology. If [...] cautiously continuing hydrochlorothiazide for the time being. Migraine 02/23/2024 Mediastinal lymphadenopathy 11/02/2023 Esophageal dysmotility 08/24/2023 Arthritis of knee 07/20/2023 Osteoarthritis of left knee 06/30/2023 Trochanteric bursitis of left hip 02/04/2023 Hypothyroidism 01/09/2021 History of 2019 novel coronavirus disease (COVID -19) 11/18/2020 Sjogren's syndrome (CMS/HCC V24) 08/29/2020 Generalized osteoarthritis 06/14/2019 Degeneration of intervertebral disc of cervical region 08/23/2017 Overview (09/13/2024): MRI study Mastodynia 01/21/2011 Sacroiliac joint pain 04/02/2008 Neuropathic pain 04/06/2007 Resolved Problems Problem Noted Date Diagnosed Date Resolved Date Orthostatic hypotension 03/19/2024 12/0 08/2023 Dysrhythmia 03/19/2024 03/22/2024 Medical History Medical [...] Sign Reading Time Taken Comments Blood Pressure 124/74 10/18/2024 1:00 PM EDT Pulse 67 10/18/2024 1:00 PM EDT Temperature 36.1 C (96.9 F) 10/18/2024 1:00 PM EDT Respiratory Rate - - Oxygen Saturation 97% 10/18/2024 1:00 PM EDT Inhaled Oxygen Concentration - - Weight 77.9 kg (171 lb 12.8 oz) 10/18/2024 1:00 PM EDT Height 149.9 cm (4' 11 ) 10/18/2024 1:00 PM EDT Body Mass Index 34.7 10/18/2024 1:00 PM EDT Plan of Treatment Health Maintenance Due Date Last Done Comments Breast Cancer Screening 1959 Colorectal Cancer Screening: Colonoscopy 1959 Cervical Cancer Screening: Pap Smear 12/29/1980 RSV Immunization Adult Patients (1 - Risk 60-74 years 1-dose series) 2019 Cholesterol Screening (Lipid Panel) 03/21/2022 Hepatitis C Screening 03/21/2022 Medicare Annual Wellness Visit 03/21/2022 Osteoporosis Screening (Bone Density Screening) 03/21/2022 Social Influencers of Health Screening 03/21/2022 Hypertension/CHF/CAD Annual BMP Blood Test 04/17/2022 Depression Screening 04/18/2024 COVID-19 Vaccine ( season) 2024 02/23/2022, 07/22/2021, 07/19/2020 Influenza Vaccine (#1) 2024 , 01/20/2023, 02/16/2022, Additional history exists Falls Risk Assessment 12/29/2024 DTaP,Tdap,and Td Vaccines (2 - Td or Tdap) 05/22/2028 05/22/2018 Zoster Vaccines Completed 10/15/2020, 05/09/2020 Pneumococcal Vaccine: 50+ Years Completed 10/11/2024 HIB Vaccines Aged Out No longer eligi [...] to complete this topic [place] Care Teams Business And Marketing Teacher Relationship Specialty Start Date End Date Emmanuel Rios MD [address] [place] [phone] PCP - General 02/23/10
--- OUTSIDE RECORDS SUMMARY | 2025-01-21 16:57 | XMS_ITS ---
Author Name [facility] Organization Unknown History of Medication Use Medication [...] 1 tablet in the morning! 4 active topiramate 25 mg tablet Take 1 tablet by oral route. 3 08/09/19 24 completed amoxicillin 500 mg capsule TAKE 1 CAPSULE BY MOUTH EVERY 8 HOURS 07/20/19 24 completed gabapentin 100 mg capsule 07/20/19 24 completed irbesartan 150 mg tablet TAKE 1 TABLET B Y MOUTH EVERY DAY FOR 90 DAYS 07/20/19 24 completed methylprednisolone 4 mg tablets in a dose pack TAKE 6 TABLETS ON DAY 1 DIRECTED ON PACKAGE AND DECREASE BY 1 TAB EACH DAY FOR A TOTAL OF 6 DAYS 07/20/19 24 completed metoprolol succinate ER 25 mg tablet,extended release 24 hr TAKE 1 TABLET BY MOUTH EVERY DAY FOR 90 DAYS 07/20/19 24 completed nifedipine ER 30 mg tablet,extended release 24 hr TAKE 1 TABLET BY MOUTH EVERY DAY FOR 90 DAYS 07/20/19 24 completed prednisone 10 mg tablet PLEASE SEE ATTACHED FOR DETAILED DIRECTIONS 07/20/19 24 completed levothyroxine 137 mcg tablet TAKE 1 TABLET BY MOUTH EVERY DAY 06/30/19 24 completed levothyroxine 137 mcg tablet TAKE 1 TABLET BY MOUTH EVERY DAY 06/30/19 24 active valacyclovir 1 gram tablet TAKE 1 TABLET BY MOUTH 3 TIMES A DAY FOR 7 DAYS 06/30/19 24 completed valacyclovir 1 gram tablet TAKE [...] DAY FOR 30 DAYS 01/28/20 23 completed dicyclomine 20 mg tablet TAKE 1 TABLET B Y MOUTH THREE TIMES A DAY FOR 30 DAYS 01/28/20 23 completed Linzess 145 mcg capsule PLEASE SEE ATTACHED FOR DETAILED DIRECTIONS 01/28/20 23 completed Linzess 145 mcg capsule PLEASE SEE ATTACHED FOR DETAILED DIRECTIONS 01/28/20 23 completed methocarbamol 500 mg tablet TAKE 1 TABLET BY MOUTH FOUR TIMES A DAY 01/28/20 23 completed methocarbamol 500 mg tablet TAKE 1 TABLET BY MOUTH FOUR TIMES A DAY 01/28/20 23 completed naproxen 500 mg tablet TAKE 1 TABLET BY MOUTH TWICE A DAY NEEDED FOR ANALGESIA 01/28/20 23 completed naproxen 500 mg tablet TAKE 1 TABLET BY MOUTH TWICE A DAY NEEDED FOR ANALGESIA 01/28/20 23 completed phentermine 15 mg capsule TAKE 1 CAPSULE ORALLY ONCE A DAY FOR 28 DAYS 01/28/20 23 completed prednisolone acetate 1 % eye drops,suspension APPLY ONE DROP IN THE RIGHT EYE 4 TIMES A DAY FOR 7 DAYS 01/28/20 23 completed prednisolone acetate 1 % eye drops,suspension APPLY ONE DROP IN THE RIGHT EYE 4 TIMES A DAY FOR 7 DAYS 01/28/20 23 active amoxicillin 500 mg capsule TAKE 1 CAPSULE BY MOUTH EVERY 8 HOURS active aripiprazole 2 mg tablet TAKE 1 TABLET B Y MOUTH EVERY DAY active aripiprazole 2 mg tablet TAKE 1 TABLET B Y MOUTH EVERY DAY FOR 90 DAYS active cyclobenzaprine 5 mg tablet TAKE 1 TABLET BY MOUTH EVERYDAY AT BEDTIME active cyclobenzaprine 5 mg tablet TAKE 1 TABLET BY MOUTH AT BEDTIME FOR 30 DAYS active dicyclomine 10 mg capsule TAKE 1 CAPSULE BY MOUTH THREE TIMES A DAY TAKE BEFORE MEALS active dicyclomine 10 mg capsule TAKE 1 CAPSULE BY MOUTH THREE TIMES A DAY TAKE BEFORE MEALS active esomeprazole magnesium 40 mg capsule,delayed release TAKE 1 CAPSULE BY MOUTH EVERY DAY FOR 90 DAYS active esomeprazole magnesium 40 mg capsule,delayed release TAKE 1 CAPSULE BY MOUTH EVERY DAY FOR 90 DAYS active gabapentin 100 mg capsule active hydrochlorothiazide 12.5 mg tablet active hydrocortisone 2.5 % topical cream with perineal applicator APPLY A SMALL AMOUNT TO AFFECTED AREA TWICE A DAY NEEDED FOR HEMORRHOIDS active hydrocortisone 2.5 % topical cream with perineal applicator APPLY A SMALL AMOUNT TO AFFECTED AREA TWICE A DAY NEEDED FOR HEMORRHOIDS active ibuprofen 800 mg tablet TAKE 1 TABLET BY MOUTH EVERY 6 HOURS NEEDED FOR PAIN active ibuprofen 800 mg tablet TAKE 1 TABLET BY MOUTH EVERY DAY NEEDED FOR MODERATE PAIN WITH FOOD FOR 30 DAYS active irbesartan 150 mg tablet TAKE 1 TABLET B Y MOUTH EVERY DAY FOR 90 DAYS active levothyroxine 150 mcg tablet TAKE 1 TABLET BY MOUTH EVERY DAY active levothyroxine 150 mcg tablet TAKE 1 [...] FOR A TOTAL OF 6 DAYS active metoprolol succinate ER 25 mg tablet,extended release 24 hr TAKE 1 TABLET BY MOUTH EVERY DAY FOR 90 DAYS active nifedipine ER 30 mg tablet,extended release 24 hr TAKE 1 TABLET BY MOUTH EVERY DAY FOR 90 DAYS active phentermine 15 mg capsule TAKE 1 CAPSULE ORALLY ONCE A DAY FOR 28 DAYS active riboflavin (vitamin B2) 400 mg tablet TAKE 1 TABLET BY MOUTH EVERY DAY IN THE MORNING active riboflavin (vitamin B2) 400 mg tablet TAKE 1 TABLET BY MOUTH EVERY DAY IN THE MORNING active ropinirole 0.25 mg tablet TAKE 2 TABLET BY MOUTH DAILY AT BEDTIME FOR 90 DAYS active ropinirole 0.25 mg tablet TAKE 2 TABLET BY MOUTH DAILY AT BEDTIME FOR 90 DAYS active sodium fluoride 1.1 % dental paste [...] Diagnosis Location Date Ambulatory [facility] 08/26/2023 Ambulatory [facility] 08/10/2023 Ambulatory [facility] 08/08/2023 Ambulatory [facility] 08/08/2023 Ambulatory [facility] 08/08/2023 Ambulatory [facility] 08/06/2023 Ambulatory [facility] 08/05/2023 Ambulatory [facility] 07/21/2023 Ambulatory [facility] 07/20/2023 Ambulatory [facility] 07/20/2023 Ambulatory [facility] 06[facility]30/2023 Ambulatory [facility] 06/28/2023 Ambulatory [facility] 06/28/2023 Ambulatory [facility] 06/19/2023 Ambulatory [facility] 04/21/2023 Ambulatory [facility] 03[facility]18/2023 Ambulatory [facility] 02/03/2023 Ambulatory [facility] 02/03/2023 Ambulatory [facility] 01/27/2023 Ambulatory [facility] 01/27/2023 Ambulatory [facility] 01/27/2023 Ambulatory [facility] 01/27/2023 Ambulatory [facility] 01/27/2023 Ambulatory [facility] 01/27/2023 Care Team Organization Name Specialty Phone Email Start Date End [place] pacheco [facility] Lizzy Marrufo Primary Care 02/23/2022 024
== END 2025-01-21 15:54 | disposition home or self-care (01) ==
LOC: HO.HSMS 14:32
PROVIDERS: Visit Provider Physician Assistant Medical
DX: G47.33 Obstructive sleep apnea (adult) (pediatric) (principal); R06.83 Snoring; R53.82 Chronic fatigue, unspecified; G25.81 Restless legs syndrome; G44.86 Cervicogenic headache; G43.909 Migraine, unspecified, not intractable, without status migrainosus; R13.10 Dysphagia, unspecified; Z86.69 Personal history of other diseases of the nervous system and sense organs
CPT/HCPCS: 99214

== ENCOUNTER → 2025-01-21 14:31 | Outpatient (BNVA) | payer MEDICARE, OTHER, SELFPAY | PROVIDERS: Visit Provider Physician Assistant Medical | DX: G47.33 Obstructive sleep apnea (adult) (pediatric) (principal); R06.03 Acute respiratory distress; R53.82 Chronic fatigue, unspecified; G25.81 Restless legs syndrome; G44.86 Cervicogenic headache; G43.909 Migraine, unspecified, not intractable, without status migrainosus; R13.10 Dysphagia, unspecified; K11.7 Disturbances of salivary secretion; G47.63 Sleep related bruxism | CPT/HCPCS: 99212 ==

== ENCOUNTER 2025-02-12 13:51 | Outpatient (REF) | payer MEDICARE, SELFPAY ==
--- NOTE | ~2025-02-12 | FL_ITS ---
EXAMINATION: XR BARIUM SWALLOW CLINICAL INFORMATION: Disturbances of salivary secretion. COMPARISON: None available. TECHNIQUE: Modified barium swallow.. FINDINGS: Modified barium swallow performed by speech pathologist. Patient swallowed quite and solids of varying consistency. There is laryngeal penetration seen. No chano aspiration. FLUOROSCOPY TIME: 51 seconds DOSE AREA PRODUCT: 306 uGy-m2 (microgray-meter squared) FL/FL Modified Barium Swallow IMPRESSION: Modified Barium Swallow . See speech pathology report for details. Electronically signed by: Usama Barrera MD 02/12/2025 05:05 PM EDT RP
--- OUTSIDE RECORDS SUMMARY | 2025-02-12 18:06 | XMS_ITS | Data Portability ---
Author Organization [place] [facility] Address [address] [place] [address] Care Team Providers Care Property Assistant Name Role Phone GIANNA MACHADO Primary Care Provider [phone] GIANNA MACHADO Primary Care Provider [phone] Assessment Encounter Date Assessment Date Assessment LastModified by Organization Details LastModified Time 02/03/2023 02/03/2023 This is a pleasant 62-year-old female with left outer hip pain consistent with trochanteric bursitis. I had a lengthy discussion with the patient regarding management including conservative treatment options as well as a home exercise program and formal physical therapy, cortisone injections. She states she would like to give options some thought however she would like to hold on any intervention at this time. She states she will call us if she changes her mind. Indirect care and treatment in conjunction with Dr. Cohen Additional treatment plan discussed with the patient (only initiated if in boldface font) otherwise not applicable. Treatment may include the following; - Provider focused nonsteroidal anti-inflammatory regimen (discussed were the pros, cons, benefits and risks as well as any black box warnings) in patients over 60 years old they should be very cautious in taking these medications due to potential decreased kidney function and or elevated blood pressure. - Analgesic pain medication for pain suppression (discussed were the pros, cons, benefits and risks as well as any black box warnings) - The use of topical pain relieving medication were discussed - The use of ice to decrease inflammation and pain - The use of assistive ambulatory devices for ambulation and fall prevention - Formal specific guided physical therapy program I reviewed my findings at length with the patient today. We discussed the nature and etiology of this problem along with current treatment options. We discussed the expected course and outcomes and what to expect. We also discussed risks and benefits. All of their questions were answered today, and there was exhibited understanding and comprehension of all that was discussed. Time Spent: 10 minutes were spent reviewing previous imaging and charting. 10 minutes were spent obtaining patient history. 5 minutes were spent on physical exam. 5minutes were spent explaining diagnosis and assessment. Today's documentation was made using voice recognition software. This note may contain grammatical errors secondary to the software. Not available 02/04/2023 08:19:33 06/30/2023 06/30/2023 62-year-old female with left knee pain. History examination and x-rays are consistent with osteoarthritis. She also has an effusion and popliteal cyst. The majority of our conversation is spent discussing treatment strategies and the natural course of osteoarthritis. After discussion regarding treatment options she wishes to be provided a prednisone taper. She will use this instead of the ibuprofen. Follow-up in 3 weeks. If she is failing to improve she may benefit from a cortisone injection at that time. This patient was seen and evaluated by Maryann Sexton MS, PA-C in indirect conjunction with documenting/super vising provider Bola Cohen MD. He agrees with history, physical examination, tests/diagnostic imaging, and treatment plan. This document was generated using voice recognition software. As a result, there may be unintended spelling, grammatical and/or textual errors. Not available 06/30/2023 11:39:43 07/20/2023 07/20/2023 Kadie has bilateral knee pain, currently presenting for her right. She was previously given a prednisone taper for her left knee and did note some improvement, but no resolution. Unfortunate she is unable to have corticosteroid injections. She is frustrated with her ongoing complaints. DVT was ruled out in the ER on 2 occasions. After her last visit for the left knee, she made an appointment for Maryann Sexton PA-C. This appointment is scheduled for the end of the month. Since she cannot have corticosteroid injection, it does seem appropriate she may want to try hyaluronic acid injection which can be discussed at that visit. In the meantime, she was offered a trial of meloxicam. The risk, benefits and potential side effects were reviewed. She will avoid other anti-inflammatori es but may use Tylenol. [email or web address] Not available 07/20/2023 15:13:19 08/09/2023 08/09/2023 62-year-old female with bilateral knee pain. History, examination and x-rays are consistent with osteoarthritis. At present moment her symptoms are well-controlled with meloxicam. She has been taking it on a daily basis though I prefer her to use it only as needed. She will be provided a prescription for meloxicam and we will trial using it no greater than 2 or 3 times per week. If she requires the medication more then she understands need to contact this office. We would likely recommend cortisone injections at that point. This patient was seen and evaluated by Maryann Sexton MS, PA-C in indirect conjunction with documenting/super vising provider Bola Cohen MD. He agrees with history, physical examination, tests/diagnostic imaging, and treatment plan. This document was generated using voice recognition software. As a result, there may be unintended spelling, grammatical and/or textual errors. [email or web address] Not available 08/09/2023 11:27:31 Plan of Treatment Reminders Order Date Submit Date Provider Last Modified By Organization Details Last Modified Time Details Appointments None recorded. Lab None recorded. Referral None recorded. Procedures None recorded. Surgeries None recorded. Imaging XR, knee, 4 or more view 2023 024 [email or web address] [facility], [address], [address], [place], [address], 4 09:09:43 XR, knee, 4 or more view 2023 024 [email or web address] [facility], [address], [address], [place], [address], 4 12:49:56 XR, hip, unilateral, 2 or 3 view 2022 023 [email or web address] [facility], [address], [address], [place], [address], 3 10:02:47 Medication Orders meloxicam 15 mg tablet 2023 024 [facility] #[id number], [address] [place], [address], 4 11:27:54 meloxicam 15 mg tablet 2023 024 [facility] #[id number], [address] [place], [address], 4 15:14:42 prednisone 10 mg tablet 2023 024 [email or web address] [facility] #[id number], [address] [place], [address], 14:43:22 Patient TargetsNo targets recorded. Patient Instructions Encounter Date Encounter Id Patient Instructions Last Modified By Organization Details Last Modified Time 02/03/2023 [id number] X-ray AP pelvis left hip and frog-leg view reveal mild degenerative change without acute bony abnormality. Not available 02/04/2023 08:19:10 06/30/2023 [id number] prednisone dosag e instructions Not available 06/30/2023 11:39:54 7 view X-ray study obtained during today's office encounter show evidence of mild left knee osteoarthritis. There is joint space narrowing, subchondral sclerosis and marginal osteophytosis. Kellgren-Cirilo grade 2. No evidence of acute fracture or osteolytic findings. Not available 06/30/2023 11:38:45 Reason for Referral None Reported. Problems Name Problem SNOMED Code Status Onset Date Resolution Date Notes Provider Name and Address Organization Details Recorded Time Trochanteri c bursitis of left hip 2752012292623 03 Active 2022 MARYANN PARSONS PA-C [address], [place], [address], [place] [facility] 3 08:19:17 Osteoarthri tis of left knee joint 3628667247759 09 Active 2023 MARYANN SEXTON PA-C [address], [place], [address], [place] [facility], [facility] 4 11:39:43 Arthritis of knee 522302890 Active 2023 SARI GRADY PA-C [address], [place], [address], [place] [facility], [facility] 4 15:11:36 Problem Notes None recorded. Procedures Surgical History Date Name Laterality Status Provider Name and Address Organization Details Recorded Time delivery completed [facility] 07/20/2023 14:41:49 delivery completed [facility], [facility] 07/20/2023 14:41:50 Hysterectomy completed [facility], [facility] 07/20/2023 14:42:04 Hernia Repair completed [facility], [facility] 07/20/2023 14:42:13 Imaging Results None recorded. Procedure Notes None recorded. Medical Equipment None Reported. Allergies Allergen ID Allergen Name Allergen Category Reaction Reaction Severity Criticality Documentation Date Start Date Code Code System Note Provider Name and Address Organization Details Recorded Time 95752 Product containin g penicilli n (product) medicatio n Not available Not available Not available 06/30/2023 76582 8001 SNOMED Pippa Friedman [facility], [facility] 4 11:12:06 21104 Cymbalta medicatio n Not available Not available Not available 06/30/2023 49164 4 RxNorm Pippa Friedman null, [place] [facility], [facility] 4 11:12:16 94591 Lyrica medicatio n Not available Not available Not available 06/30/2023 85350 1 RxNorm Pippa Friedman null, [place] [facility], [facility] 4 11:12:23 17607 oxycodone medicatio n Not available Not available Not available 06/30/2023 7804 RxNorm Pippa Friedman null, [place] [facility] 4 11:12:28 17368 acetamino phen / oxycodone medicatio n Not available Not available Not available 06/30/2023 48692 3 RxNorm Pippa Friedman [place], [place] [facility] 4 11:12:32 05304 Iodinated contrast media (substanc e) medicatio n Not available Not available Not available 06/30/2023 24453 2003 SNOMED react ed once - last time using was fine if took benad ryl befor e. Pippa Idalia akins, [place] [facility] 4 11:12:59 Medications Name Sig Start Date Stop Date Status Note LastModified by Organization Details LastModified Time nifedipine ER 30 mg tablet,exte nded release 24 hr TAKE 1 TABLET BY MOUTH EVERY DAY FOR 90 DAYS 07/19 completed Not Available Not Available Not Available amoxicillin 500 mg capsule TAKE 1 CAPSULE BY MOUTH EVERY 8 HOURS 07/19 completed Not Available Not Available Not Available methocarbam ol 500 mg tablet TAKE 1 TABLET BY MOUTH FOUR TIMES A DAY 01/27 completed Not Available Not Available Not Available levothyroxi ne 137 mcg tablet TAKE 1 TABLET BY MOUTH EVERY DAY 06/29 completed Not Available Not Available Not Available prednisone 10 mg tablet PLEASE SEE ATTACHED FOR DETAILED DIRECTION S 07/19 completed Not Available Not Available Not Available ibuprofen 800 mg tablet TAKE 1 TABLET BY MOUTH EVERY DAY NEEDED FOR MODERATE PAIN WITH FOOD FOR 30 DAYS active Not Available Not Available No t Available valacyclovi r 1 gram tablet TAKE 1 TABLET BY MOUTH 3 TIMES A DAY FOR 7 DAYS 06/29 completed Not Available Not Available Not Available meloxicam 15 mg tablet TAKE 1 TABLET EVERY DAY BY ORAL ROUTE NEEDED. active Not Available Not Available No t Available phentermine 15 mg capsule TAKE 1 CAPSULE ORALLY ONCE A DAY FOR 28 DAYS active Not Available Not Available No t Available topiramate 25 mg tablet Take 1 tablet by oral route. 08/08 completed Not Available Not Available Not Available valacyclovi r 500 mg tablet TAKE 1 TABLET BY MOUTH 2 TIMES A DAY FOR 5 DAYS DRINK PLENTY OF FLUIDS 06/29 completed Not Available Not Available Not Available hydrocortis one 2.5 % topical cream with perineal applicator APPLY A SMALL AMOUNT TO AFFECTED AREA TWICE A DAY NEEDED FOR HEMORRHOI DS active Not Available Not Available No t Available prednisolon e acetate 1 % eye drops,suspe nsion APPLY ONE DROP IN THE RIGHT EYE 4 TIMES A DAY FOR 7 DAYS 01/27 completed Not Available Not Available Not Available magnesium oxide 400 mg (241.3 mg magnesium) tablet TAKE 1 TABLET BY MOUTH EVERY DAY active Not Available Not Available No t Available trazodone 100 mg tablet TAKE 1 TABLET BY MOUTH EVERYDAY AT BEDTIME active Not Available Not Available No t Available ropinirole 0.25 mg tablet TAKE 2 TABLET BY MOUTH DAILY AT BEDTIME FOR 90 DAYS active Not Available Not Available No t Available dicyclomine 20 mg tablet TAKE 1 TABLET BY MOUTH THREE TIMES A DAY FOR 30 DAYS 01/27 completed Not Available Not Available Not Available esomeprazol e magnesium 40 mg capsule,del ayed release TAKE 1 CAPSULE BY MOUTH EVERY DAY FOR 90 DAYS active Not Available Not Available No t Available levothyroxi ne 150 mcg tablet TAKE 1 TABLET BY MOUTH EVERY DAY active Not Available Not Available No t Available gabapentin 100 mg capsule 07/19 completed Not Available Not Available Not Available metoprolol succinate ER 25 mg tablet,exte nded release 24 hr TAKE 1 TABLET BY MOUTH EVERY DAY FOR 90 DAYS 07/19 completed Not Available Not Available Not Available irbesartan 150 mg tablet TAKE 1 TABLET BY MOUTH EVERY DAY FOR 90 DAYS 07/19 completed Not Available Not Available Not Available methylpredn isolone 4 mg tablets in a dose pack TAKE 6 TABLETS ON DAY 1 DIRECTED ON PACKAGE AND DECREASE BY 1 TAB EACH DAY FOR A TOTAL OF 6 DAYS 07/19 completed Not Available Not Available Not Available dicyclomine 10 mg capsule TAKE 1 CAPSULE BY MOUTH THREE TIMES A DAY TAKE BEFORE MEALS active Not Available Not Available No t Available naproxen 500 mg tablet TAKE 1 TABLET BY MOUTH TWICE A DAY NEEDED FOR ANALGESIA 01/27 completed Not Available Not Available Not Available cyclobenzap rine 5 mg tablet TAKE 1 TABLET BY MOUTH AT BEDTIME FOR 30 DAYS active Not Available Not Available No t Available sodium fluoride 1.1 % dental paste USE EVERY MORNING AND EVENING FOR 1 MINUTES AND SPIT OUT active Not Available Not Available No t Available aripiprazol e 2 mg tablet TAKE 1 TABLET BY MOUTH EVERY DAY active Not Available Not Available No t Available hydrochloro thiazide 12.5 mg tablet TAKE 1 TABLET BY MOUTH EVERY DAY active Not Available Not Available No t Available Linzess 145 mcg capsule PLEASE SEE ATTACHED FOR DETAILED DIRECTION S 01/27 completed Not Available Not Available Not Available riboflavin (vitamin B2) 400 mg tablet TAKE 1 TABLET BY MOUTH EVERY DAY IN THE MORNING active Not Available Not Available No t Available Vitals Date Recorded Body height Body mass index (BMI) Body weight Provider Name and Address Organization Details Last Updated DateTime 07/20/2023 152.4 cm 32.4 kg/m2 57569.33 g Maria Luisa Herrera [place] [facility] 07/20/2023 14:40:37 Date Recorded Body height Body mass index (BMI) Body weight Provider Name and Address Organization Details Last Updated DateTime 08/09/2023 152.4 cm 32.4 kg/m2 41958.33 g Lo Meyerrell [place] [facility] 08/09/2023 11:00:31 Social History None recorded. Functional Status Question Answer Note LastModified by Organizat ion Details LastModified Time How many times per week do you consume alcohol? Less than 1 time per week [id number] Information not available 07/20/2023 Do you use any illicit or recreational drugs? No [email or web address] Information not available 07/20/2023 Do you or have you ever used any other forms of tobacco or nicotine? No [email or web address] Information not available 07/20/2023 What is your level of alcohol consumption? Occasional [email or web address] Information not available 07/20/2023 Mental Status None recorded. Family History Nothing Reported. Medical History Condition Response Arthritis Y Asthma Y Hypertension Y Osteoporosis Y Gynecological HistoryNo gynecological history recorded. Obstetrics History GPAL:G 0 P 0 0 0 0 Past Encounters Encounter ID Performer Location Encounter Start Date Encounter Closed Date Diagnosis/Indication Diagnosis SNOMED-CT Code Diagnosis ICD10 Code Diagnosis IMO Codes Diagnosis Note [id number] PATRIC [address] [address] 02/03/2023 14:19:16 02/03/2023 15:10:03 Pain of left hip joint 1224914541 35940 M25.552 Trochanter ic bursitis of left hip 9598012697 60862 M70.62 [id number] PATRIC [place] [address] [facility] [address] [place] [address] 06/30/2023 10:39:14 06/30/2023 11:42:05 Osteoarthritis of left knee joint 7994895861 99372 M17.12 Additional diagnosis detail: Primary osteoarthr itis of left knee [id number] SARI GRADY PA-C [address] [address] 07/20/2023 14:19:19 07/20/2023 16:33:12 Pain of right knee region 3912353352 67070 M25.561 Additional diagnosis detail: Right knee pain, unspecifie d chronicity Arthritis of knee 798879 002 M17.10 Additional diagnosis detail: Patellofem oral arthritis [id number] MARYANN SEXTON PA-C [address] [address] 08/09/2023 10:50:12 08/09/2023 11:25:40 Arthritis of knee 484984712 M17.10 Health Concerns Section Related Observation LastModified by Organization Detai ls LastModified Time None Recorded Concern Status LastModified by Organization Details LastModified Time None Recorded Advance Directives Directive None Recorded Payers Insurance Date Sequence Insurance Name Policy Number Policy Haile Covered Member ID Haile Member ID Guarantor Name 06/30/2023 1 [facility] (MEDICARE REPLACEMENT/A DVANTAGE - PPO) [id number] Kadie Sharma [id number] Kadie Sharma Notes Date Note Type Note Provider Name and Address Organization Details Recorded Time 02/03/2023 text/html Pleasant 62-year-old female here for evaluation of left outer hip pain that is worse with sleeping. She denies any injury. Her symptoms have been getting worse over the last year. She takes jzxy-bwh-kqpsunj pain medication which gives her minimal relief. Here for evaluation and treatment. MARYANN PARSONS PA-C [address] [facility] [address], [place], [address], [place] [facility] 02/04/2023 08:19:50 06/30/2023 text/html 62-year-old female presents with recent worsening of pain at the left knee. She reports the onset of pain several months ago but the onset of more significant swelling over the course the past 2 weeks. There has been no new injury accidents or trauma. She presented to the emergency department where the leg was evaluated with ultrasound. She was negative for DVT but was told that she has the presence of a Bolanos's cyst. She has been treating this with ibuprofen [id number]-akkviol as well as alternating applications of ice and heat. She has taken to using a cane for ambulation. She denies a history of surgery fracture dislocation or need for injection to the left knee in the past. She localizes her pain largely to the medial compartment of the joint. MARYANN SEXTON PA-C [address] [facility] [address], [place], [address], [place] [facility] 06/30/2023 11:40:21 07/20/2023 text/html Patient is a 62-year-old female who presents today with issues with her right knee. She has recently been seen both in the emergency room and in our practice for her left knee. Shortly after last visit, she developed pain in the right knee and again was seen at [facility]. And DVT was ruled out on both occasions for her legs. She was recommended for orthopedic follow-up. She has an appointment scheduled for the end of July with Maryann Sexton PA-C. After her last visit she was given a prednisone taper with some improvement, but only partial improvement. She is unable to tolerate corticosteroid injections. SARI GRADY PA-C [address], [place], [address], [place] [facility] 07/20/2023 15:15:04 08/09/2023 text/html 62-year-old female presents for recheck of bilateral knee pain. She reports that she used a prescription of meloxicam given to her by Mr. Grady. She reports that it has significantly reduced the severity of her pain such that she has back to a high level of function. She states that she still has some discomfort though she characterizes it as mild and manageable. There has been no new injury accident or trauma. MARYANN SEXTON PA-C [address], [place], [address], [place] [facility] 08/09/2023 11:28:12 OBGyn Episode No OBEpisode recorded.
--- OUTSIDE RECORDS SUMMARY | 2025-02-12 18:06 | XMS_ITS | Clinical Summary ---
Author Organization [facility] Address [address] [place] [address] Care Team Providers Care Tower Dragline Operator Name Role Phone Emmanuel Rios MD Primary Care Provider [phone] Allergies Active Allergy Reactions Criticality Noted Date [...] age to complete this topic Care Teams Tower Dragline Operator Relationship Specialty Start Date End Date Emmanuel Rios MD [address] [address] PCP - General Front Office Director 01/08/21
--- OUTSIDE RECORDS SUMMARY | 2025-02-12 18:06 | XMS_ITS | Patient Health Record ---
Author Organization [facility] Address [address] [place] [address] [address] [place] [address] Care Team Providers Care Sap Bpc Architect Name Role Phone Unknown, Unknown Primary Care [...] BY MOUTH TWICE A DAY FOR 30 DAYS; Duration: 90 Active Phentermine HCl 15 MG TAKE 1 CAPSULE ORA LLY ONCE A DAY FOR 28 DAYS; Duration: 06/28/2023 Active traZODone HCl 100 MG 1 [...] on an empty stomach Orally Once a day; Duration: 30 day(s) 08/03/2022 Not-Taking Symbicort 160-4.5 MCG/ACT 2 puffs Inhala tion Twice a day Active Dicyclomine HCl 20 MG 1 tablet Orally Th ree times a day; Duration: 30 day(s) 08/03/2022 Not-Taking Immunizations Vaccine Route [...] Status W/U Status Risk Notes Problem Hypothyroidism (01838639) Hypothyroidism, unspecified (E03.9) Active confirmed Problem Obesity due to excess calories (231416289) Other obesity due to excess calories (E66.09) Active confirmed Problem Mild recurrent major depression (85404551) Major depressive disorder, recurrent, mild (F33.0) Active confirmed Problem Generalized anxiety disorder (48828961) Generalized anxiety disorder (F41.1) Active confirmed Problem Restless legs syndrome (51776879) Restless legs syndrome (G25.81) Active confirmed Problem Insomnia (191513935) Insomnia, unspecified (G47.00) Active confirmed Problem Uncomplicated mild persistent asthma (282004982) Mild persistent asthma, uncomplicated (J45.30) Active confirmed Problem Gastro-esophageal reflux disease without esophagitis (947456392) Gastro-esophagea l reflux disease without esophagitis (K21.9) Active confirmed Problem Constipation (63888288) Constipation, unspecified (K59.00) Active confirmed Problem Essential hypertension (59934047) Essential (primary) hypertension (I10) Active confirmed Problem Irritable bowel syndrome characterized by constipation (691046325) Irritable bowel syndrome with constipation (K58.1) Active confirmed Plan Of Treatment No Information Insurance Providers Payer Name Payer Address Payer Phone Subscriber Number Group Number Insured Name Patient Relationship to Insured Coverage Start Date Coverage End Date [facility] [address] [place] [address] [id number] Kadie Sharma Self - patient is the insured Medicare [address] [place] [address] [id number] Kadie Sharma Self - patient is the insured Medical (General) History Medical History History ICD Code insomnia RLS anxiety/depression and sees Dr. Teran asthma hypertension GERD IBS Surgical History Surgery Date(Month/Year) x2 partial hysterectomy incisional hernia
--- OUTSIDE RECORDS SUMMARY | 2025-02-12 18:06 | XMS_ITS | Clinical Summary ---
Author Organization [address] [place] [address] [place] [phone] Phone Care Team Providers Care Livestock Judging Coach Name Role Phone Emmanuel Rios MD Primary Care Provider [phone] Allergies Active Allergy Reactions Criticality Noted Date [...] sarcoidosis, I would like to proceed with [id number] Holter and echocardiogram as detailed below. Orders: [...] Continue management of pulmonary sarcoid via her oncology radiation physician. Venous insufficiency 03/22/2024 Assessment & Plan (03/22/2024 [...] additional think she could do including isometric escapement maker exercises at the time of symptomatology. If [...] RSV Immunization Adult Patients (1 - Risk 50-74 years 1-dose series) 12/29/2009 Cholesterol Screening (Lipid Panel) 03/21/2022 Hepatitis C [...] [place] - [place] Care Teams Livestock Judging Coach Relationship Specialty Start Date End Date Emmanuel Rios MD [address] [place] [phone] PCP - General 02/23/10
--- NOTE | 2025-02-13 09:40 | MHC.SL.IMP ---
Date of Plan of Treatment: 02/12/25 Onset of Symptoms/Illness: 01/22/25 Date Treatment Started: 02/12/25 Admitting Diagnosis: JIM Primary Speech & Language Diagnosis: R13.10 Dysphagia Reason for Today's Visit: 29011 Modified Barium Swallow Study Pre-evaluation Dietary Consistencies: Regular Pre-evaluation Liquid Consistency: Thin Pre-evaluation Medication Administration: Whole with Liquid Medical History: Modified Barium Swallow Study Fluoroscopic Evaluation of Swallowing Function CPT Code 08642 Evaluation Year: 2024 Reason for Study: Choking on saliva Referring Physician: Armando Howe PA-C Evaluating Clinician: Maria Del Carmen Lyman MA, CCC-PERENNIAL HOUSE MANAGER Study Number: 1 Patient Name: Kadie Sharma Status: Outpatient, Ambulatory Age: 64 Sex: Female Medical History Medical History Obstructive sleep apnea hypopnea, moderate Migraine Cervicogenic headache Sarcoidosis Sjogren's disease IBS (irritable bowel syndrome) Hypothyroidism Fibromyalgia HTN (hypertension) Carpal tunnel syndrome on both sides Depression Anxiety Neuralgic migraines Back pain Cervical spondylosis Hernia, abdominal delivery delivered Surgical History History of cataract surgery H/O exploratory laparotomy H/O laparoscopy H/O: hysterectomy Current (pre-evaluation) Intake/Diet: Route: PO Diet Grade: Regular Liquid Consistencies: Thin Pre-Study Functional Oral Intake Scale (FOIS): 7- Total oral intake with no restrictions Pain: None reported at time of study SUBJECTIVE: Patient is a 64 year old female referred for a modified barium swallow study by the Neurology and Sleep office. Patient complains of choking on her saliva when she is sleeping or lying flat. She denies having any difficulty swallowing foods or liquids. She denies odynophagia and globus sensation. Patient reportedly had endoscopy which revealed narrow esophagus and a dilation procedure was done many years ago. Note history of JIM, also Sjogren?s disease, IBS, fibromyalgia, and hypothyroidism. Oral Motor Exam Facial Symmetry: Symmetrical Mouth Occlusion: Normal Oral-Facial Teeth Characteristics: Intact/Normal Oral-Facial Lip Pucker Description: Normal Oral-Facial Smile (Lips) Description: Normal Oral-Facial Puff Cheeks Description: Normal Tongue Size: Normal Tongue Excursion Description: Normal Tongue Range of Movement Description: Normal Tongue Speed of Movement Description: Normal Tongue Strength of Movement (against opposing pressure): Normal Tongue Movement Characteristics: Normal/Absent Is patient able to manage secretions?: Yes Is patient able to produce volitional cough?: Yes Food and Liquid Trials: Oral Impairment: Lip Closure: 0=No labial escape Oral Impairment: Tongue Control During Bolus Hold: 0=Cohesive bolus between tongue to palatal seal Oral Impairment: Bolus Preparation/Mastication: 0=Timely and efficient chewing and mashing Oral Impairment: Bolus Transport/Lingual Motion: 1= Delayed initiation of tongue motion Oral Impairment: Oral Residue: 1=Trace residue lining oral structures Oral Impairment:Initiation of Pharyngeal Swallow: 2=Bolus head at posterior laryngeal surface of epiglottis Pharyngeal Impairment: Soft Palate Elevation: 0=No bolus between soft palate (SP)/pharyngeal wall (PW) Pharyngeal Impairment: Laryngeal Elevation: 0=Complete superior movement of thyroid cartilage (see description) Pharyngeal Impairment: Anterior Hyoid Excursion: 0=Complete anterior movement Pharyngeal Impairment: Epiglottic Movement: 1=Partial inversion Pharyngeal Impairment: Laryngeal Vestibular Closure:: 1=Incomplete: narrow column air/contrast in laryngeal vestibule Pharyngeal Impairment: Pharyngeal Stripping Wave: 0=Present: complete Pharyngeal Impairment: Pharyngeal Contraction: Did not test Pharyngeal Impairment: Pharyngoesophageal Segment Openin=Complete distension and complete duration: no obstruction of flow Pharyngeal Impairment: Tongue Base (TB) Retraction: 1=Trace column of contrast/air between TB and posterior PW Pharyngeal Impairment: Pharyngeal Residue: 0=Complete pharyngeal clearance Pharyngeal Impairment: Esophageal Clearance Upright Position: Did not test Impressions and Recommendations Clinical Observations: OBJECTIVE: Time-out: performed at 14:15 Evaluation Start: 14:00; Stop: 14:05 Patient Positioning: Standing Viewing Planes: LATERAL ONLY Contrast: MBSImP? Standardized Protocol using commercially prepared, standardized Barium viscosities, including: Varibar? THIN LIQUID (40% w/v, <15 cps) , Varibar? PUDDING (40% w/v, <7322-3639 cps) , 1/2 Shortbread Cookie (1 x1 x.25 ) MBSImP ID: [id number] MBSImP Results: Lip closure for intraoral bolus containment resulted in no labial escape. Tongue control during bolus hold maintained a cohesive bolus held between tongue to palate seal. Bolus preparation and mastication resulted in timely and efficient chewing and mashing. Bolus transport/lingual motion demonstrated delayed initiation of tongue motion. Oral residue was a trace, lining oral structures. Initiation of the pharyngeal swallow occurred as the bolus head was at the posterior laryngeal surface of the epiglottis. Soft palate elevation resulted in no bolus between the soft palate and the pharyngeal wall. Laryngeal elevation demonstrated complete superior movement of the thyroid cartilage with complete approximation of the arytenoids to the epiglottic petiole. Anterior hyoid excursion demonstrated complete anterior movement. Epiglottic movement resulted in partial inversion. Laryngeal vestibular closure was incomplete, with a narrow column of air/contrast noted within the laryngeal vestibule at the height of the swallow. Pharyngeal stripping wave was present and complete. Pharyngeal contraction could not be determined due to logistical reasons not related to physiologic impairment. Pharyngoesophageal segment opening was completely distended for complete duration with no obstruction of bolus flow. Tongue base retraction allowed a trace column of contrast or air between the retracted tongue base and the posterior pharyngeal wall. Pharyngeal residue was not present. There was complete pharyngeal clearance. Esophageal clearance in the upright position could not be assessed due to logistical reasons not related to physiologic impairment. Oral Impairment Score: 3 Pharyngeal Impairment Score: 2 (absence of score, component 13) Esophageal Impairment Score: --- (absence of score, component 17) Laryngeal Penetration and Aspiration: Neither penetration nor aspiration was observed in today's study with Cookie, Pudding-thick. Penetration was observed in today's study. Thin Contrast entered the airway, remained above the vocal folds, and was ejected from the airway. ASSESSMENT: This exam was performed by the radiologist and the speech pathologist. Patient was standing for lateral view and fed herself independently. She trialed the following consistencies: -Thin liquid (via individual cup sips and rapid cup sips) -Puree (mixture applesauce with barium pudding) -Regular (shortbread cookies coated with barium pudding) Adequate lip closure with no anterior loss of bolus. Good tongue control with no premature posterior spillage from the oral cavity. Mastication was timely and efficient. Mildly delayed AP transport of bolus. Pharyngeal swallow trigger was also delayed, initiated as the bolus head reached the posterior laryngeal surface of the epiglottis. Post-swallow, there was just trace residue lining the tongue and palate. No evidence of nasopharyngeal reflux. Complete laryngeal elevation with partial epiglottic inversion and incomplete laryngeal vestibular closure. There was flash penetration seen with sips of thin liquid, which momentarily entered the airway above the vocal folds and spontaneously cleared. No evidence of aspiration during this exam. Complete pharyngeal clearance noted. Liquid Intake Recommendation: Thin Dietary Recommendations: Regular Medication Administration: Whole with Liquid Please contact the pharmacy regarding appropriate crushable or liquid drug formulations that are available whenever modified delivery is recommended. Compensatory Strategies Recommended: Sitting Upright (90 deg), Small Bites and Sips, Rate of Ingestion Change Recommendation for Speech Therapy: NA:Typical Evaluation Text Comment: Intake Recommendations: Route: PO Diet Grade: Regular Liquid Consistencies: Thin Post-Study Functional Oral Intake Scale (FOIS): 7- Total oral intake with no restrictions Flash penetration with thin liquid, with no subsequent aspiration. Good oral and pharyngeal clearance. Therapy Recommendations: Speech Therapy and diet modification are not indicated at this time. Recommend patient continue on unmodified textures REGULAR solids and THIN liquids, pills WHOLE with LIQUID. Patient is to follow-up with Neurology and Sleep for further workup. Clinician - Supplemental, Miscellaneous Communication: It is important to note MBSS objective studies are snapshots in time and Patient function might vary with factors such as time of day or concomitant medical conditions. For this reason, the final treatment plan for this patient should rest with their medical care team. Additional recommendations should be considered with the totality of the Patient in mind. Thank for the opportunity to participate in the care of this patient. If you have any questions about the content of this report, please contact the [facility] at [facility]. Education: Education regarding findings from today's study and plans for therapy were provided to Patient only through Verbal Instruction. Understanding was expressed by the Patient only. Clinical Appeals Specialist Clinician/Clinical Fellow: No Supervisory Statement: N/A Speech Language Pathologist: Maria Del Carmen Lyman M.A., CCC-PERENNIAL HOUSE MANAGER
== END 2025-02-12 13:52 | disposition home or self-care (01) ==
LOC: HO.XRAY 13:51
PROVIDERS: PCP Internal Medicine; Visit Provider Physician Assistant Medical
DX: K11.7 Disturbances of salivary secretion (principal); R13.10 Dysphagia, unspecified
CPT/HCPCS: 74230; 92611

== ENCOUNTER → 2025-02-12 14:00 | Outpatient (BNV) | payer MEDICARE, SELFPAY | PROVIDERS: PCP Internal Medicine; Visit Provider Radiology Diagnostic Ultrasound | DX: K11.7 Disturbances of salivary secretion (principal); R13.10 Dysphagia, unspecified | CPT/HCPCS: 74230 ==